=== PATIENT | female | born 1965 | race Caucasian/White ===

== ENCOUNTER 2021-04-18 09:17 | Inpatient (IN) ==
[2021-04-18] MEDS ORDERED: 0.9 % Sodium Chloride 1,000 ML IVC ONE (09:28)
[2021-04-18] MEDS ORDERED: Isovue-370 500 ML BOTTLE IVP ONE (09:30)
[2021-04-18 09:59] LABS: Basophils # 0.1 K/mcL (0.0-0.2); Basophils % 2.1 %; Eosinophils # 0.2 K/mcL (0.0-0.6); Eosinophils % 2.5 %; Hematocrit 48.4 % (35.3-44.9); Hemoglobin 16.4 g/dL (11.5-15.4); Immature Granulocytes % 0.4 % (0-4); Lymphocytes % 44.4 %; Mean Corpuscular HGB Conc 33.9 g/dL (31.6-35.5); Mean Corpuscular Hemoglobin 31.2 pg (28.0-33.3); Mean Platelet Volume 10.3 fL (9.4-12.4); Monocytes # 0.6 K/mcL (0.0-1.3); Monocytes % 8.3 %; Neutrophils # 2.9 K/mcL (1.6-8.9); Platelet Count 279 K/mcL (140-400); Red Blood Count 5.26 M/mcL (3.82-4.97); Segmented Neutrophils % 42.3 %; White Blood Count 6.8 K/mcL (4.3-11.1)
[2021-04-18 10:03] LABS: VBG Ionized Calcium 1.08 mmol/L (1.15-1.35)
[2021-04-18] MEDS ORDERED: *HR* LORazepam 2 MG/ML VIAL IVP ONE (10:03)
[2021-04-18 10:28] LABS: Acetaminophen 25 mcg/mL (10-20); Alanine Aminotransferase 52 Units/L (7-52); Albumin 4.7 g/dL (3.5-5.7); Albumin/Globulin Ratio 1.5 (1.1-2.2); Alkaline Phosphatase 137 Units/L (34-104); Aspartate Amino Transferase 107 Units/L (13-39); BUN/Creatinine Ratio 9 (6-26); Bilirubin,Direct 0.2 mg/dL (0.0-0.2); Bilirubin,Indirect 0.8 mg/dL (0.0-1.0); Blood Urea Nitrogen 6 mg/dL (6-20); Calcium 10.4 mg/dL (8.6-10.3); Carbon Dioxide 23 mEq/L (23-29); Chloride 94 mEq/L (98-107); Globulin 3.1 g/dL (2.4-3.5); Glucose 81 mg/dL (70-105); Lipase 32 Units/L (11-82); Magnesium 1.9 mg/dL (1.6-2.6); Osmolality,Calculated 275 (280-300); Phosphorous 3.6 mg/dL (2.7-4.5); Potassium 3.6 mEq/L (3.5-5.1); Salicylate < 2.5 mg/dL (15.0-30.0); Sodium 134 mEq/L (136-145); Total Protein 7.8 g/dL (6.4-8.9); Troponin I < 0.03 ng/mL (< 0.04); eGFR For African Americans > 60 (> 60); eGFR For Non-African Americans > 60 (> 60)
[2021-04-18 11:16] LABS: Ethanol 61 mg/dL (Less than 10)
[2021-04-18 12:16] LABS: Amphetamine Screen,Urine Positive ng/mL (Cutoff=1000); Barbiturate Screen,Urine Negative ng/mL (Cutoff=200); Benzodiazepines Screen,Urine Negative ng/mL (Cutoff=200); Cannabinoid Screen,Urine Negative ng/mL (Cutoff = 50); Cocaine Screen,Urine Negative ng/mL (Cutoff= 300); Opiate Screen,Urine Negative ng/mL (Cutoff=300); Phencyclidine Screen,Urine Negative ng/mL (Cutoff=25)
[2021-04-18 12:32] LABS: Bilirubin,Urine Negative (Negative); Blood,Urine Negative (Negative); Clarity,Urine Clear (Clear); Color,Urine Colorless (Yellow); Glucose,Urine (UA) Normal (Normal); Ketones,Urine 10 mg/dL (Negative); Leukocyte Esterase,Urine Trace (Negative); Mucus,Urine Few per lpf (None-Few); Nitrite,Urine Positive (Negative); PH,Urine 6.5 pH Units (5.0-8.0); Protein,Urine Trace mg/dL (Neg-Trace); RBC,Urine 0-3 per hpf (0-3); Specific Gravity,Urine > 1.030 (1.010-1.025); Squamous Epithelial Cell,Urine Few per hpf (None-Few); Urobilinogen,Urine Normal (Normal)
[2021-04-18] MEDS ORDERED: Ondansetron ODT 4 MG TAB.RAPDIS SL PRN (13:18)
[2021-04-18] MEDS ORDERED: Naloxone 0.4 MG/ML INJ IVP PRN (13:18)
[2021-04-18] MEDS ORDERED: MOM Conc 10 ML UD.LIQ PO PRN (13:18)
[2021-04-18] MEDS ORDERED: Mag Hydrox/Al Hydrox/Simeth 30 ML UDC PO PRN (13:18)
[2021-04-18] MEDS ORDERED: *HR* LORazepam 2 MG/ML VIAL IVP PRN (13:21)
[2021-04-18] MEDS: cefTRIAXone 1,000 MG in 0.9 % Sodium Chloride 10 ML IVP SCH (15:54)
[2021-04-18] MEDS: *HR* LORazepam 2 MG/ML VIAL IVP PRN ×2 (16:02→20:24)
[2021-04-18] MEDS: Nicotine 21 MG PATCH.TD24 TD SCH (17:14)
[2021-04-18] MEDS: Melatonin 3 MG TABLET PO PRN (20:22)
[2021-04-19] MEDS: *HR* LORazepam 2 MG/ML VIAL IVP PRN ×5 (00:56→20:00)
[2021-04-19] MEDS ORDERED: *HR* LORazepam 2 MG/ML VIAL IVP ONE ×2 (07:23→08:09)
[2021-04-19] MEDS: Folic Acid 1 MG TABLET PO SCH (07:39)
[2021-04-19] MEDS ORDERED: Thiamine (B-1) 100 MG TABLET PO SCH (09:00)
[2021-04-19] MEDS ORDERED: Vitamin B Complex/Vit C/Vit E 1 EACH TABLET PO SCH (09:00)
[2021-04-19] MEDS: cefTRIAXone 1,000 MG in 0.9 % Sodium Chloride 10 ML IVP SCH (15:28)
[2021-04-19] MEDS: Nicotine 21 MG PATCH.TD24 TD SCH (15:30)
[2021-04-20] MEDS: *HR* LORazepam 2 MG/ML VIAL IVP PRN ×4 (00:02→16:58)
[2021-04-20 04:47] LABS: Basophils # 0.1 K/mcL (0.0-0.2); Basophils % 1.7 %; Eosinophils # 0.1 K/mcL (0.0-0.6); Eosinophils % 2.1 %; Hematocrit 42.8 % (35.3-44.9); Immature Granulocytes % 0.2 % (0-4); Lymphocytes # 2.7 K/mcL (0.6-4.6); Lymphocytes % 40.8 %; Mean Corpuscular HGB Conc 34.1 g/dL (31.6-35.5); Mean Corpuscular Volume 93.9 fL (83.0-100.0); Mean Platelet Volume 10.6 fL (9.4-12.4); Monocytes # 0.6 K/mcL (0.0-1.3); Monocytes % 8.5 %; Neutrophils # 3.1 K/mcL (1.6-8.9); Platelet Count 218 K/mcL (140-400); Red Blood Count 4.56 M/mcL (3.82-4.97); Red Cell Distribution Width 12.8 % (11.5-14.5); Segmented Neutrophils % 46.7 %; White Blood Count 6.6 K/mcL (4.3-11.1)
[2021-04-20 04:54] LABS: Hemoglobin 14.6 g/dL (11.5-15.4)
[2021-04-20 05:06] LABS: BUN/Creatinine Ratio 10 (6-26); Blood Urea Nitrogen 5 mg/dL (6-20); Calcium 9.7 mg/dL (8.6-10.3); Carbon Dioxide 25 mEq/L (23-29); Chloride 99 mEq/L (98-107); Glucose 94 mg/dL (70-105); Osmolality,Calculated 279 (280-300); Potassium 3.4 mEq/L (3.5-5.1); Sodium 136 mEq/L (136-145); eGFR For African Americans > 60 (> 60); eGFR For Non-African Americans > 60 (> 60)
[2021-04-20] MEDS: Folic Acid 1 MG TABLET PO SCH (08:40)
[2021-04-20] MEDS: Thiamine (B-1) 500 MG in 0.9 % Sodium Chloride 50 ML IVPB SCH ×3 (09:27→20:07)
[2021-04-20] MEDS: cefTRIAXone 1,000 MG in 0.9 % Sodium Chloride 10 ML IVP SCH (15:07)
[2021-04-20] MEDS: Nicotine 21 MG PATCH.TD24 TD SCH (16:49)
[2021-04-20] MEDS: *HR* Heparin 5,000 UNIT/ML VIAL SQ SCH (16:50)
[2021-04-20] MEDS: Melatonin 3 MG TABLET PO PRN (20:03)
[2021-04-21] MEDS: *HR* LORazepam 2 MG/ML VIAL IVP PRN ×3 (00:27→07:52)
[2021-04-21 05:01] LABS: BUN/Creatinine Ratio 13 (6-26); Blood Urea Nitrogen 7 mg/dL (6-20); Calcium 9.1 mg/dL (8.6-10.3); Carbon Dioxide 28 mEq/L (23-29); Chloride 106 mEq/L (98-107); Glucose 95 mg/dL (70-105); Magnesium 1.9 mg/dL (1.6-2.6); Osmolality,Calculated 288 (280-300); Phosphorous 3.6 mg/dL (2.7-4.5); Potassium 4.2 mEq/L (3.5-5.1); Sodium 140 mEq/L (136-145); eGFR For African Americans > 60 (> 60); eGFR For Non-African Americans > 60 (> 60)
[2021-04-21] MEDS: *HR* Heparin 5,000 UNIT/ML VIAL SQ SCH (06:02)
[2021-04-21] MEDS: Folic Acid 1 MG TABLET PO SCH (08:25)
[2021-04-21] MEDS: Thiamine (B-1) 500 MG in 0.9 % Sodium Chloride 50 ML IVPB SCH (08:25)
[2021-04-21] MEDS ORDERED: risperiDONE 1 MG TABLET PO SCH (11:00)
[2021-04-21 11:37] VITALS: BP 121/82; PULSE 75; TEMP 98.4; O2SAT 98
[2021-04-21 13:55] LABS: Influenza A PCR Negative (Negative); Influenza B PCR Negative (Negative); Resp. Syncytial Virus PCR Negative (Negative)
[2021-04-21 13:56] LABS: SARS-CoV-2 by PCR (In House) Negative (Negative)
[2021-04-22] MEDS ORDERED: Thiamine (B-1) 200 MG in 0.9 % Sodium Chloride 50 ML IVPB SCH (09:00)
== END 2021-04-21 17:44 | DRG 753 ==
LOC: 3BNU 09:17 → EMEROOARM 09:17 → SUATTDRO 13:04 → 3BNU 14:28 → SUATTDRO 04-19 12:57
PROVIDERS: ADMIT Internal Medicine; ATTEND Internal Medicine

== ENCOUNTER 2021-10-06 05:58 | Inpatient (IN) ==
[2021-10-06] MEDS ORDERED: Papaverine 60 MG/2 ML VIAL IVP ONE (06:04)
[2021-10-06] MEDS ORDERED: DOBUTamine 1,000 MG/250 ML BAG ONE (06:15)
[2021-10-06] MEDS ORDERED: NiCARdipine 2.5 MG/10 ML Syringe IVPB ONE (06:15)
[2021-10-06] MEDS ORDERED: *HR* Midazolam HCl 5 MG/5 ML VIAL IVP ONE (06:18)
[2021-10-06] MEDS ORDERED: *HR* FentaNYL (PF) 1,000 MCG/20 ML VIAL ONE (06:19)
[2021-10-06] MEDS ORDERED: *HR* Propofol 200 MG/20 ML VIAL IVP ONE (06:19)
[2021-10-06] MEDS ORDERED: CeFAZolin Syr 2,000MG/20 ML 2,000 MG/20 ML SYRINGE IVPB ONE (06:21)
[2021-10-06] MEDS ORDERED: Tranexamic Acid 1,000 MG/10 ML VIAL ONE (06:21)
[2021-10-06] MEDS ORDERED: *HR* Magnesium Sulfate 1 GM/2 ML VIAL ONE (06:21)
[2021-10-06] MEDS ORDERED: Famotidine 20 MG/2 ML VIAL ONE (06:21)
[2021-10-06] MEDS ORDERED: Lidocaine 2% Syringe 100 MG/5 ML ONE (06:21)
[2021-10-06] MEDS ORDERED: *HR* Rocuronium Bromide 50 MG/5 ML VIAL ONE ×3 (06:22→10:39)
[2021-10-06] MEDS ORDERED: del Nido Cardioplegia Solution PF ONE ×2 (07:00)
[2021-10-06] MEDS ORDERED: Buckersberg's Blood Cardioplegia PF ONE (07:00)
[2021-10-06] MEDS ORDERED: Norepinephrine 4 MG in 0.9 % Sodium Chloride 250 ML IVC PRN (07:00)
[2021-10-06] MEDS ORDERED: Chlorhexidine Rinse 15 ML MOUTHWASH MM SCH (07:00)
[2021-10-06] MEDS ORDERED: Heparin 15,000 UNIT in 0.9 % Sodium Chloride 500 ML IR ONE (07:00)
[2021-10-06] MEDS: Ringers Solution, Lactated 1,000 ML IVC SCH (07:02)
[2021-10-06 07:34] LABS: ABG Base Excess -1 mEq/L (-2 to 3); ABG Chloride 105 mEq/L (98-107); ABG Glucose 81 mg/dL (60-95); ABG HCO3 26 mEq/L (21-27); ABG Ionized Calcium 1.27 mmol/L (1.15-1.35); ABG Oxygen Saturation 100 % (95-98); ABG PCO2 50 mmHg (35-45); ABG PH 7.33 pH Units (7.32-7.45); ABG PO2 310 mmHg (85-104); ABG TCO2 28 mEq/L (20-26)
[2021-10-06 09:04] LABS: ABG Base Excess -6 mEq/L (-2 to 3); ABG Chloride 108 mEq/L (98-107); ABG Glucose 75 mg/dL (60-95); ABG HCO3 21 mEq/L (21-27); ABG Oxygen Saturation 99 % (95-98); ABG PCO2 46 mmHg (35-45); ABG PH 7.27 pH Units (7.32-7.45); ABG PO2 172 mmHg (85-104); ABG TCO2 22 mEq/L (20-26)
[2021-10-06] MEDS ORDERED: Insulin Regular, Human 100 UNIT/ML IV PRN (09:06)
[2021-10-06] MEDS ORDERED: Ipratropium/Albuterol Neb 3 ML IH PRN (09:06)
[2021-10-06] MEDS ORDERED: *HR* Dextrose 50 % in Water (Syg) 50 ML SYRINGE IVP PRN (09:06)
[2021-10-06] MEDS ORDERED: Potassium Chloride 40 MEQ/200 ML BAG IVPB PRN (09:06)
[2021-10-06] MEDS ORDERED: Albuterol 2.5 MG/3 ML NEBULIZER IH PRN (09:06)
[2021-10-06] MEDS ORDERED: Acetaminophen 325 MG TABLET PO PRN (09:06)
[2021-10-06] MEDS ORDERED: *HR* Promethazine 25 MG/ML VIAL IM PRN (09:06)
[2021-10-06] MEDS ORDERED: Ondansetron 4 MG/2 ML VIAL IVP PRN (09:06)
[2021-10-06] MEDS ORDERED: Naloxone 0.4 MG/ML INJ IVP PRN (09:06)
[2021-10-06 10:00] LABS: ABG Base Excess -2 mEq/L (-2 to 3); ABG Chloride 106 mEq/L (98-107); ABG Glucose 92 mg/dL (60-95); ABG HCO3 22 mEq/L (21-27); ABG Ionized Calcium 0.97 mmol/L (1.15-1.35); ABG Oxygen Saturation 100 % (95-98); ABG PCO2 34 mmHg (35-45); ABG PH 7.42 pH Units (7.32-7.45); ABG PO2 566 mmHg (85-104); ABG TCO2 23 mEq/L (20-26)
[2021-10-06] MEDS ORDERED: Albumin Human 5% 75.0 GM/1,500 ML IV.SOLN ONE (10:20)
[2021-10-06 10:25] LABS: ABG Base Excess 1 mEq/L (-2 to 3); ABG Chloride 106 mEq/L (98-107); ABG Glucose 114 mg/dL (60-95); ABG HCO3 25 mEq/L (21-27); ABG Ionized Calcium 0.97 mmol/L (1.15-1.35); ABG Oxygen Saturation 100 % (95-98); ABG PCO2 36 mmHg (35-45); ABG PH 7.45 pH Units (7.32-7.45); ABG PO2 528 mmHg (85-104); ABG TCO2 26 mEq/L (20-26)
[2021-10-06] MEDS ORDERED: [UNRECOGNIZED DRUG - OTHER] IVPB ONE (10:30)
[2021-10-06] MEDS ORDERED: HUM PROTHROMBIN CPLX IVPB ONE (10:30)
[2021-10-06] MEDS ORDERED: WATER FOR INJ IVPB ONE (10:30)
[2021-10-06] MEDS ORDERED: niCARdipine 20 MG/200 ML MLS IVC ONE (10:35)
[2021-10-06 10:36] LABS: ABG Base Excess -2 mEq/L (-2 to 3); ABG Chloride 104 mEq/L (98-107); ABG Glucose 78 mg/dL (60-95); ABG HCO3 22 mEq/L (21-27); ABG Ionized Calcium 0.94 mmol/L (1.15-1.35); ABG PCO2 33 mmHg (35-45); ABG PH 7.43 pH Units (7.32-7.45); ABG PO2 > 630 mmHg (85-104); ABG TCO2 23 mEq/L (20-26)
[2021-10-06] MEDS ORDERED: *HR* FentaNYL (PF) 250 MCG/5 ML VIAL ONE (10:45)
[2021-10-06] MEDS ORDERED: Furosemide 40 MG/4 ML VIAL ONE (10:51)
[2021-10-06] MEDS ORDERED: Dexmedetomidine HCl 400 MCG/100 ML MLS IVC ONE (10:51)
[2021-10-06] MEDS ORDERED: Protamine Sulfate 250 MG/25 ML VIAL IVP ONE (11:11)
[2021-10-06] MEDS ORDERED: Calcium Gluconate 1,000 MG/10 ML VIAL ONE ×2 (11:11→11:40)
[2021-10-06 11:33] LABS: ABG Base Excess -5 mEq/L (-2 to 3); ABG Chloride 109 mEq/L (98-107); ABG Glucose 137 mg/dL (60-95); ABG HCO3 20 mEq/L (21-27); ABG Ionized Calcium 0.94 mmol/L (1.15-1.35); ABG Oxygen Saturation 100 % (95-98); ABG PCO2 37 mmHg (35-45); ABG PH 7.35 pH Units (7.32-7.45); ABG PO2 485 mmHg (85-104); ABG TCO2 22 mEq/L (20-26)
[2021-10-06 12:01] LABS: ABG Base Excess -3 mEq/L (-2 to 3); ABG Chloride 108 mEq/L (98-107); ABG Glucose 132 mg/dL (60-95); ABG HCO3 21 mEq/L (21-27); ABG Oxygen Saturation 100 % (95-98); ABG PCO2 35 mmHg (35-45); ABG PH 7.39 pH Units (7.32-7.45); ABG PO2 173 mmHg (85-104); ABG TCO2 22 mEq/L (20-26)
[2021-10-06] MEDS ORDERED: ceFAZolin 1,000 MG in 0.9 % Sodium Chloride 10 ML IVP ONE (12:06)
[2021-10-06 12:39] LABS: ABG Base Excess 2 mEq/L (-2 to 3); ABG HCO3 26 mEq/L (21-27); ABG Oxygen Saturation 100 % (95-98); ABG PCO2 41 mmHg (35-45); ABG PH 7.41 pH Units (7.32-7.45); ABG PO2 207 mmHg (85-104); ABG TCO2 28 mEq/L (20-26); Blood Gas VT 430 cc
[2021-10-06 12:59] LABS: Basophils # 0.1 K/mcL (0.0-0.2); Basophils % 0.6 %; Eosinophils % 0.5 %; Hematocrit 21.8 % (35.3-44.9); Immature Granulocytes % 0.8 % (0-4); Lymphocytes # 1.1 K/mcL (0.6-4.6); Lymphocytes % 12.3 %; Mean Corpuscular Hemoglobin 30.1 pg (28.0-33.3); Mean Corpuscular Volume 91.2 fL (83.0-100.0); Mean Platelet Volume 9.9 fL (9.4-12.4); Monocytes # 0.5 K/mcL (0.0-1.3); Monocytes % 5.6 %; Neutrophils # 6.9 K/mcL (1.6-8.9); Platelet Count 114 K/mcL (140-400); Red Blood Count 2.39 M/mcL (3.82-4.97); Red Cell Distribution Width 14.8 % (11.5-14.5); Segmented Neutrophils % 80.2 %; White Blood Count 8.6 K/mcL (4.3-11.1)
[2021-10-06 13:02] LABS: Hemoglobin 7.2 g/dL (11.5-15.4)
[2021-10-06 13:06] LABS: INR 1.2
[2021-10-06 13:08] LABS: Activated Partial Thrombo Time 38.3 Seconds (26.0-36.0)
[2021-10-06 13:11] LABS: Prothrombin Time 13.5 Seconds (9.4-12.1)
[2021-10-06 13:17] LABS: BUN/Creatinine Ratio 7 (6-26); Blood Urea Nitrogen 4 mg/dL (6-20); Calcium 10.4 mg/dL (8.6-10.3); Carbon Dioxide 28 mEq/L (23-29); Chloride 105 mEq/L (98-107); Glucose 136 mg/dL (70-105); Magnesium 2.7 mg/dL (1.6-2.6); Osmolality,Calculated 295 (280-300); Sodium 143 mEq/L (136-145)
[2021-10-06] MEDS: Dexmedetomidine HCl 400 MCG/100 ML MLS IVC SCH (13:20)
[2021-10-06] MEDS: niCARdipine 20 MG/200 ML MLS IVC SCH ×3 (13:21→21:41)
[2021-10-06] MEDS: DOBUTamine 1,000 MG/250 ML BAG IVC SCH (13:21)
[2021-10-06] MEDS: Norepinephrine 4 MG/254 ML IV.SOLN IVC SCH ×2 (13:22→15:33)
[2021-10-06] MEDS: *HR* FentaNYL (PF) 100 MCG/2 ML VIAL IVP PRN ×3 (15:15→20:49)
[2021-10-06] MEDS: Albumin Human 5% 12.5 GM/250 ML IV.SOLN IVPB PRN (15:35)
[2021-10-06] MEDS ORDERED: *HR* Phenylephrine 10 MG/ML VIAL IVC ONE (15:52)
[2021-10-06] MEDS ORDERED: Tranexamic Acid 1,000 MG/10 ML VIAL IR ONE (15:52)
[2021-10-06] MEDS ORDERED: Lidocaine 2% Syringe 100 MG/5 ML IVP ONE (15:52)
[2021-10-06] MEDS ORDERED: Mannitol 25% vial 12.5 GM/50 ML VIAL IVPB ONE (15:52)
[2021-10-06] MEDS ORDERED: *HR* Magnesium Sulfate 2 GM/50 ML PIGGYBACK IVPB ONE (15:52)
[2021-10-06] MEDS ORDERED: *HR* Heparin 10,000 UNIT/10 ML VIAL IR ONE (15:52)
[2021-10-06] MEDS ORDERED: Sodium Bicarbonate 50 MEQ/50 ML VIAL IVC ONE (15:52)
[2021-10-06] MEDS ORDERED: Albumin Human 25% 25 GM/100 ML IV.SOLN IVPB ONE (15:52)
[2021-10-06 15:59] LABS: ABG Base Excess 6 mEq/L (-2 to 3); ABG HCO3 31 mEq/L (21-27); ABG Oxygen Saturation 95 % (95-98); ABG PCO2 44 mmHg (35-45); ABG PH 7.45 pH Units (7.32-7.45); ABG PO2 71 mmHg (85-104); ABG TCO2 32 mEq/L (20-26); Blood Gas VT 430 cc
[2021-10-06] MEDS: Pantoprazole 40 MG VIAL IVP SCH (16:41)
[2021-10-06 16:52] LABS: ABG Base Excess 7 mEq/L (-2 to 3); ABG HCO3 31 mEq/L (21-27); ABG Oxygen Saturation 96 % (95-98); ABG PCO2 40 mmHg (35-45); ABG PO2 76 mmHg (85-104); ABG TCO2 32 mEq/L (20-26); Blood Gas Modality CPAP/PS; Blood Gas Pressure Support 5 cm H2O
[2021-10-06 17:46] LABS: ABG Base Excess 6 mEq/L (-2 to 3); ABG HCO3 31 mEq/L (21-27); ABG Oxygen Saturation 94 % (95-98); ABG PCO2 51 mmHg (35-45); ABG PO2 71 mmHg (85-104); ABG TCO2 33 mEq/L (20-26)
[2021-10-06] MEDS: *HR* OxyCODONE/APAP 5/325 TABLET PO PRN (19:24)
[2021-10-06] MEDS: Chlorhexidine Rinse 15 ML MOUTHWASH MM SCH (21:12)
[2021-10-06] MEDS ORDERED: *HR* LORazepam 1 MG TABLET PO PRN ×2 (23:54)
[2021-10-07] MEDS: Dexmedetomidine HCl 400 MCG/100 ML MLS IVC SCH ×3 (00:02→16:52)
[2021-10-07] MEDS: Vitamin B Complex/Vit C/Vit E 1 EACH TABLET PO SCH ×2 (00:11→09:13)
[2021-10-07] MEDS: Folic Acid 1 MG in 0.9 % Sodium Chloride 50 ML IVPB SCH ×2 (00:32→09:14)
[2021-10-07] MEDS: Thiamine (B-1) 200 MG in 0.9 % Sodium Chloride 50 ML IVPB SCH ×2 (01:38→09:14)
[2021-10-07] MEDS: *HR* OxyCODONE/APAP 5/325 TABLET PO PRN ×4 (02:19→21:37)
[2021-10-07 03:28] LABS: Basophils % 0.3 %; Immature Granulocytes % 0.3 % (0-4); Red Cell Distribution Width 14.9 % (11.5-14.5)
[2021-10-07 03:30] LABS: Hematocrit 21.8 % (35.3-44.9); Lymphocytes # 1.5 K/mcL (0.6-4.6); Lymphocytes % 19.2 %; Mean Corpuscular HGB Conc 32.1 g/dL (31.6-35.5); Mean Corpuscular Hemoglobin 29.5 pg (28.0-33.3); Mean Platelet Volume 10.9 fL (9.4-12.4); Monocytes # 0.7 K/mcL (0.0-1.3); Monocytes % 8.3 %; Neutrophils # 5.7 K/mcL (1.6-8.9); Red Blood Count 2.37 M/mcL (3.82-4.97); Segmented Neutrophils % 71.9 %; White Blood Count 7.9 K/mcL (4.3-11.1)
[2021-10-07 03:42] LABS: Platelet Count 67 K/mcL (140-400)
[2021-10-07 03:53] LABS: BUN/Creatinine Ratio 18 (6-26); Blood Urea Nitrogen 10 mg/dL (6-20); Calcium 8.6 mg/dL (8.6-10.3); Carbon Dioxide 31 mEq/L (23-29); Chloride 100 mEq/L (98-107); Glucose 139 mg/dL (70-105); Magnesium 1.9 mg/dL (1.6-2.6); Osmolality,Calculated 289 (280-300); Phosphorous 4.7 mg/dL (2.7-4.5); Sodium 139 mEq/L (136-145)
[2021-10-07] MEDS: Albumin Human 5% 12.5 GM/250 ML IV.SOLN IVPB PRN (04:42)
[2021-10-07] MEDS: niCARdipine 20 MG/200 ML MLS IVC SCH ×7 (06:33→23:03)
[2021-10-07] MEDS: Ringers Solution, Lactated 1,000 ML IVC SCH (06:33)
[2021-10-07] MEDS: *HR* FentaNYL (PF) 100 MCG/2 ML VIAL IVP PRN (06:34)
[2021-10-07] MEDS ORDERED: Furosemide 20 MG/2 ML VIAL IVP SCH (09:00)
[2021-10-07] MEDS: CeFAZolin 2,000 MG/120 ML BAG IVPB SCH ×2 (09:08→16:53)
[2021-10-07] MEDS: Chlorhexidine Rinse 15 ML MOUTHWASH MM SCH ×2 (09:13→19:37)
[2021-10-07] MEDS: Furosemide 40 MG/4 ML VIAL IVP SCH ×3 (09:13→16:57)
[2021-10-07] MEDS: Aspirin Enteric Coated 81 MG Tablet PO SCH (09:13)
[2021-10-07] MEDS: Pantoprazole 40 MG VIAL IVP SCH (09:13)
[2021-10-07] MEDS: DOBUTamine 1,000 MG/250 ML BAG IVC SCH (09:15)
[2021-10-07] MEDS: FLUoxetine 20 MG CAPSULE PO SCH (11:30)
[2021-10-07] MEDS: Norepinephrine 4 MG/254 ML IV.SOLN IVC SCH (19:34)
[2021-10-07] MEDS: traZODone 50 MG TABLET PO SCH (20:07)
[2021-10-07] MEDS ORDERED: Albumin Human 5% 12.5 GM/250 ML IV.SOLN IVPB PRN (20:47)
[2021-10-07 22:52] LABS: Hematocrit 22.3 % (35.3-44.9); Hemoglobin 7.1 g/dL (11.5-15.4)
[2021-10-08] MEDS: CeFAZolin 2,000 MG/120 ML BAG IVPB SCH ×3 (01:44→16:43)
[2021-10-08] MEDS: *HR* OxyCODONE/APAP 5/325 TABLET PO PRN ×4 (01:44→20:30)
[2021-10-08] MEDS: niCARdipine 20 MG/200 ML MLS IVC SCH ×4 (01:46→16:58)
[2021-10-08] MEDS: Ringers Solution, Lactated 1,000 ML IVC SCH (04:06)
[2021-10-08] MEDS ORDERED: 0.9 % Sodium Chloride 250 ML ONE (05:34)
[2021-10-08] MEDS: Furosemide 40 MG/4 ML VIAL IVP SCH ×5 (08:08→20:31)
[2021-10-08] MEDS: Aspirin Enteric Coated 81 MG Tablet PO SCH (08:11)
[2021-10-08] MEDS: Vitamin B Complex/Vit C/Vit E 1 EACH TABLET PO SCH (08:11)
[2021-10-08] MEDS: FLUoxetine 20 MG CAPSULE PO SCH (08:11)
[2021-10-08] MEDS: Chlorhexidine Rinse 15 ML MOUTHWASH MM SCH ×2 (08:11→20:31)
[2021-10-08] MEDS: Pantoprazole 40 MG VIAL IVP SCH (08:11)
[2021-10-08] MEDS: Thiamine (B-1) 200 MG in 0.9 % Sodium Chloride 50 ML IVPB SCH (08:12)
[2021-10-08 08:37] LABS: Eosinophils % 0.1 %; Hemoglobin 7.9 g/dL (11.5-15.4); Lymphocytes % 11.7 %; Monocytes % 8.5 %; Red Cell Distribution Width 14.6 % (11.5-14.5)
[2021-10-08 08:38] LABS: White Blood Count 16.1 K/mcL (4.3-11.1)
[2021-10-08 08:39] LABS: Basophils % 0.2 %; Hematocrit 24.2 % (35.3-44.9); Immature Granulocytes % 0.7 % (0-4); Immature Platelets 16.9 % (1.1-6.1); Lymphocytes # 1.9 K/mcL (0.6-4.6); Mean Corpuscular HGB Conc 32.6 g/dL (31.6-35.5); Monocytes # 1.4 K/mcL (0.0-1.3); Neutrophils # 12.7 K/mcL (1.6-8.9); Red Blood Count 2.63 M/mcL (3.82-4.97); Segmented Neutrophils % 78.8 %
[2021-10-08 08:47] LABS: Platelet Count 76 K/mcL (140-400)
[2021-10-08 08:55] LABS: Calcium 8.2 mg/dL (8.6-10.3); Phosphorous 2.7 mg/dL (2.7-4.5); Potassium 3.2 mEq/L (3.5-5.1)
[2021-10-08] MEDS: Folic Acid 1 MG in 0.9 % Sodium Chloride 50 ML IVPB SCH (09:40)
[2021-10-08] MEDS: DOBUTamine 1,000 MG/250 ML BAG IVC SCH (10:16)
[2021-10-08] MEDS: Norepinephrine 4 MG/254 ML IV.SOLN IVC SCH (12:26)
[2021-10-08] MEDS: Dexmedetomidine HCl 400 MCG/100 ML MLS IVC SCH ×2 (12:27→15:35)
[2021-10-08 16:21] LABS: Hematocrit 26.4 % (35.3-44.9); Hemoglobin 8.6 g/dL (11.5-15.4)
[2021-10-08] MEDS: *HR* LORazepam 1 MG TABLET PO PRN (18:41)
[2021-10-08] MEDS: traZODone 50 MG TABLET PO SCH (20:31)
[2021-10-09] MEDS: Dexmedetomidine HCl 400 MCG/100 ML MLS IVC SCH ×2 (00:30→06:50)
[2021-10-09] MEDS: CeFAZolin 2,000 MG/120 ML BAG IVPB SCH ×3 (04:30→17:19)
[2021-10-09 05:03] LABS: Basophils % 0.2 %; Eosinophils % 0.1 %; Hemoglobin 7.9 g/dL (11.5-15.4); Red Blood Count 2.63 M/mcL (3.82-4.97)
[2021-10-09 05:05] LABS: Hematocrit 24.1 % (35.3-44.9); Immature Granulocytes % 1.3 % (0-4); Immature Platelets 17.5 % (1.1-6.1); Lymphocytes # 1.8 K/mcL (0.6-4.6); Lymphocytes % 14.1 %; Mean Corpuscular HGB Conc 32.8 g/dL (31.6-35.5); Mean Corpuscular Volume 91.6 fL (83.0-100.0); Mean Platelet Volume 12.1 fL (9.4-12.4); Monocytes # 1.1 K/mcL (0.0-1.3); Monocytes % 8.3 %; Neutrophils # 9.7 K/mcL (1.6-8.9); Red Cell Distribution Width 14.6 % (11.5-14.5); White Blood Count 12.7 K/mcL (4.3-11.1)
[2021-10-09 05:05] LABS: VBG Ionized Calcium 1.04 mmol/L (1.15-1.35)
[2021-10-09 05:08] LABS: Platelet Count 62 K/mcL (140-400)
[2021-10-09 05:20] LABS: BUN/Creatinine Ratio 21 (6-26); Blood Urea Nitrogen 16 mg/dL (6-20); Carbon Dioxide 26 mEq/L (23-29); Chloride 98 mEq/L (98-107); Glucose 131 mg/dL (70-105); Magnesium 1.8 mg/dL (1.6-2.6); Osmolality,Calculated 277 (280-300); Phosphorous 2.7 mg/dL (2.7-4.5); Potassium 3.2 mEq/L (3.5-5.1); Sodium 132 mEq/L (136-145)
[2021-10-09] MEDS: *HR* OxyCODONE/APAP 5/325 TABLET PO PRN ×3 (06:26→21:34)
[2021-10-09] MEDS: Aspirin Enteric Coated 81 MG Tablet PO SCH (09:13)
[2021-10-09] MEDS: FLUoxetine 20 MG CAPSULE PO SCH (09:13)
[2021-10-09] MEDS: Vitamin B Complex/Vit C/Vit E 1 EACH TABLET PO SCH (09:13)
[2021-10-09] MEDS: Chlorhexidine Rinse 15 ML MOUTHWASH MM SCH ×2 (09:13→21:33)
[2021-10-09] MEDS: Pantoprazole 40 MG VIAL IVP SCH (09:13)
[2021-10-09] MEDS: Furosemide 40 MG/4 ML VIAL IVP SCH ×2 (09:14→17:19)
[2021-10-09] MEDS: niCARdipine 20 MG/200 ML MLS IVC SCH ×5 (09:14→20:14)
[2021-10-09] MEDS: DOBUTamine 1,000 MG/250 ML BAG IVC SCH (09:15)
[2021-10-09] MEDS: Ringers Solution, Lactated 1,000 ML IVC SCH (09:15)
[2021-10-09] MEDS ORDERED: Calcium Gluconate 1gm/50mL 1 GM/50 ML BAG IVPB ONE (15:32)
[2021-10-09] MEDS: Ipratropium/Albuterol Neb 3 ML IH SCH ×2 (16:08→21:34)
[2021-10-09] MEDS ORDERED: NON-FORMULARY MEDICATION 1 EACH EACH (Albuterol Sulfate [Proair Respiclick] 90 MCG Aer.Pow IH PRN (16:33)
[2021-10-09] MEDS: Budesonide/Formoterol 160/4.5 1 PUFF INH IH SCH (21:34)
[2021-10-09] MEDS: traZODone 50 MG TABLET PO SCH (21:34)
[2021-10-09] MEDS: Albuterol 2.5 MG/3 ML NEBULIZER IH SCH (21:34)
[2021-10-10] MEDS: Ipratropium/Albuterol Neb 3 ML IH SCH ×6 (03:41→23:09)
[2021-10-10] MEDS: Albuterol 2.5 MG/3 ML NEBULIZER IH SCH ×2 (03:41→10:26)
[2021-10-10 04:22] LABS: BUN/Creatinine Ratio 22 (6-26); Blood Urea Nitrogen 15 mg/dL (6-20); Calcium 7.9 mg/dL (8.6-10.3); Carbon Dioxide 29 mEq/L (23-29); Chloride 101 mEq/L (98-107); Glucose 112 mg/dL (70-105); Osmolality,Calculated 284 (280-300); Potassium 3.7 mEq/L (3.5-5.1); Sodium 136 mEq/L (136-145)
[2021-10-10] MEDS: Ringers Solution, Lactated 1,000 ML IVC SCH ×2 (06:41→22:33)
[2021-10-10] MEDS: CeFAZolin 2,000 MG/120 ML BAG IVPB SCH ×2 (06:42→08:09)
[2021-10-10] MEDS: niCARdipine 20 MG/200 ML MLS IVC SCH ×7 (08:03→22:32)
[2021-10-10] MEDS: Furosemide 40 MG/4 ML VIAL IVP SCH ×2 (08:04→17:01)
[2021-10-10] MEDS: Norepinephrine 4 MG/254 ML IV.SOLN IVC SCH ×2 (08:04→22:32)
[2021-10-10] MEDS: Aspirin Enteric Coated 81 MG Tablet PO SCH (08:05)
[2021-10-10] MEDS: Chlorhexidine Rinse 15 ML MOUTHWASH MM SCH ×2 (08:05→20:21)
[2021-10-10] MEDS: Pantoprazole 40 MG VIAL IVP SCH (08:05)
[2021-10-10] MEDS: Vitamin B Complex/Vit C/Vit E 1 EACH TABLET PO SCH (08:05)
[2021-10-10] MEDS: FLUoxetine 20 MG CAPSULE PO SCH (08:06)
[2021-10-10] MEDS: *HR* OxyCODONE/APAP 5/325 TABLET PO PRN ×3 (08:29→20:32)
[2021-10-10] MEDS: DOBUTamine 1,000 MG/250 ML BAG IVC SCH (09:39)
[2021-10-10 10:12] LABS: Basophils % 0.2 %; Eosinophils # 0.1 K/mcL (0.0-0.6); Eosinophils % 1.5 %; Hematocrit 24.8 % (35.3-44.9); Immature Granulocytes % 0.6 % (0-4); Lymphocytes # 0.7 K/mcL (0.6-4.6); Mean Corpuscular HGB Conc 32.3 g/dL (31.6-35.5); Mean Corpuscular Hemoglobin 30.7 pg (28.0-33.3); Mean Platelet Volume 11.9 fL (9.4-12.4); Monocytes # 0.8 K/mcL (0.0-1.3); Monocytes % 8.6 %; Neutrophils # 7.7 K/mcL (1.6-8.9); Platelet Count 103 K/mcL (140-400); Red Blood Count 2.61 M/mcL (3.82-4.97); Red Cell Distribution Width 15.1 % (11.5-14.5); Segmented Neutrophils % 82.1 %; White Blood Count 9.4 K/mcL (4.3-11.1)
[2021-10-10] MEDS: Budesonide/Formoterol 160/4.5 1 PUFF INH IH SCH ×2 (10:56→19:42)
[2021-10-10] MEDS: *HR* LORazepam 1 MG TABLET PO PRN ×2 (13:17→17:18)
[2021-10-10 14:23] LABS: INR 1.4; Prothrombin Time 15.9 Seconds (9.4-12.1)
[2021-10-10 14:25] LABS: Activated Partial Thrombo Time 24.6 Seconds (26.0-36.0)
[2021-10-10 14:50] LABS: Albumin 4.1 g/dL (3.5-5.7); Albumin/Globulin Ratio 1.4 (1.1-2.2); Bilirubin,Direct 0.1 mg/dL (0.0-0.2); Bilirubin,Indirect 0.6 mg/dL (0.0-1.0); Bilirubin,Total 0.7 mg/dL (0.3-1.0); Globulin 2.9 g/dL (2.4-3.5)
[2021-10-10] MEDS: traZODone 50 MG TABLET PO SCH (20:25)
[2021-10-11] MEDS: Ipratropium/Albuterol Neb 3 ML IH SCH ×6 (03:56→23:58)
[2021-10-11] MEDS: niCARdipine 20 MG/200 ML MLS IVC SCH (05:05)
[2021-10-11] MEDS: *HR* LORazepam 1 MG TABLET PO PRN ×2 (05:48→09:46)
[2021-10-11 06:21] LABS: Basophils % 0.3 %; Eosinophils # 0.1 K/mcL (0.0-0.6); Eosinophils % 1.8 %; Hematocrit 24.5 % (35.3-44.9); Hemoglobin 7.8 g/dL (11.5-15.4); Immature Granulocytes % 0.7 % (0-4); Lymphocytes # 1.4 K/mcL (0.6-4.6); Lymphocytes % 18.7 %; Mean Corpuscular HGB Conc 31.8 g/dL (31.6-35.5); Mean Corpuscular Hemoglobin 30.2 pg (28.0-33.3); Mean Platelet Volume 11.2 fL (9.4-12.4); Monocytes % 13.2 %; Neutrophils # 4.8 K/mcL (1.6-8.9); Platelet Count 117 K/mcL (140-400); Red Blood Count 2.58 M/mcL (3.82-4.97); Red Cell Distribution Width 15.2 % (11.5-14.5); Segmented Neutrophils % 65.3 %; White Blood Count 7.3 K/mcL (4.3-11.1)
[2021-10-11 06:37] LABS: BUN/Creatinine Ratio 21 (6-26); Blood Urea Nitrogen 11 mg/dL (6-20); Calcium 8.1 mg/dL (8.6-10.3); Carbon Dioxide 29 mEq/L (23-29); Chloride 99 mEq/L (98-107); Glucose 109 mg/dL (70-105); Osmolality,Calculated 278 (280-300); Phosphorous 2.3 mg/dL (2.7-4.5); Potassium 3.6 mEq/L (3.5-5.1); Sodium 134 mEq/L (136-145)
[2021-10-11] MEDS: Budesonide/Formoterol 160/4.5 1 PUFF INH IH SCH ×2 (08:06→19:57)
[2021-10-11] MEDS: Furosemide 40 MG/4 ML VIAL IVP SCH ×2 (08:47→17:06)
[2021-10-11] MEDS: Vitamin B Complex/Vit C/Vit E 1 EACH TABLET PO SCH (08:47)
[2021-10-11] MEDS: FLUoxetine 20 MG CAPSULE PO SCH (08:47)
[2021-10-11] MEDS: Chlorhexidine Rinse 15 ML MOUTHWASH MM SCH ×2 (08:47→08:51)
[2021-10-11] MEDS: Aspirin Enteric Coated 81 MG Tablet PO SCH (08:47)
[2021-10-11] MEDS: Pantoprazole 40 MG VIAL IVP SCH (08:51)
[2021-10-11] MEDS ORDERED: Tiotropium 10 INH DOSE IH SCH (09:00)
[2021-10-11] MEDS: *HR* OxyCODONE/APAP 5/325 TABLET PO PRN ×2 (14:48→23:49)
[2021-10-11] MEDS: Dexmedetomidine HCl 400 MCG/100 ML MLS IVC SCH (19:18)
[2021-10-11] MEDS: traZODone 50 MG TABLET PO SCH (20:19)
[2021-10-11] MEDS: Sennosides/Docusate Sodium TABLET PO SCH (21:09)
[2021-10-12] MEDS: Ipratropium/Albuterol Neb 3 ML IH SCH ×6 (03:47→23:07)
[2021-10-12 05:01] LABS: Basophils % 0.3 %; Eosinophils # 0.2 K/mcL (0.0-0.6); Eosinophils % 2.2 %; Hemoglobin 7.5 g/dL (11.5-15.4); Immature Granulocytes % 0.9 % (0-4); Lymphocytes # 1.7 K/mcL (0.6-4.6); Lymphocytes % 24.7 %; Mean Corpuscular HGB Conc 32.6 g/dL (31.6-35.5); Mean Platelet Volume 11.2 fL (9.4-12.4); Monocytes # 0.9 K/mcL (0.0-1.3); Monocytes % 12.9 %; Platelet Count 142 K/mcL (140-400); Red Cell Distribution Width 15.5 % (11.5-14.5); White Blood Count 6.8 K/mcL (4.3-11.1)
[2021-10-12 05:08] LABS: BUN/Creatinine Ratio 24 (6-26); Blood Urea Nitrogen 12 mg/dL (6-20); Calcium 8.3 mg/dL (8.6-10.3); Carbon Dioxide 34 mEq/L (23-29); Chloride 98 mEq/L (98-107); Glucose 114 mg/dL (70-105); Magnesium 1.9 mg/dL (1.6-2.6); Osmolality,Calculated 289 (280-300); Potassium 2.9 mEq/L (3.5-5.1); Sodium 139 mEq/L (136-145)
[2021-10-12] MEDS: *HR* OxyCODONE/APAP 5/325 TABLET PO PRN ×3 (05:51→19:58)
[2021-10-12] MEDS: Furosemide 40 MG/4 ML VIAL IVP SCH ×2 (07:41→17:12)
[2021-10-12] MEDS: Pantoprazole 40 MG VIAL IVP SCH (07:41)
[2021-10-12] MEDS: Chlorhexidine Rinse 15 ML MOUTHWASH MM SCH ×2 (07:42→19:54)
[2021-10-12] MEDS: Aspirin Enteric Coated 81 MG Tablet PO SCH (07:42)
[2021-10-12] MEDS: FLUoxetine 20 MG CAPSULE PO SCH (07:43)
[2021-10-12] MEDS: Sennosides/Docusate Sodium TABLET PO SCH ×2 (07:43→19:58)
[2021-10-12] MEDS: Vitamin B Complex/Vit C/Vit E 1 EACH TABLET PO SCH (07:43)
[2021-10-12] MEDS: Budesonide/Formoterol 160/4.5 1 PUFF INH IH SCH ×2 (07:45→19:57)
[2021-10-12] MEDS ORDERED: polyethylene glycoL 3350 17 GM POWD.PACK PO SCH (09:00)
[2021-10-12] MEDS: niCARdipine 20 MG/200 ML MLS IVC SCH (10:13)
[2021-10-12] MEDS: DOBUTamine 1,000 MG/250 ML BAG IVC SCH (10:13)
[2021-10-12] MEDS: Dexmedetomidine HCl 400 MCG/100 ML MLS IVC SCH (12:22)
[2021-10-12 14:24] LABS: VBG Ionized Calcium 1.13 mmol/L (1.15-1.35)
[2021-10-12] MEDS ORDERED: Ondansetron 4 MG/2 ML VIAL IVP PRN (14:31)
[2021-10-12] MEDS ORDERED: *HR* Promethazine 25 MG/ML VIAL IM PRN (14:31)
[2021-10-12] MEDS ORDERED: *HR* Dextrose 50 % in Water (Syg) 50 ML SYRINGE IVP PRN (14:31)
[2021-10-12] MEDS ORDERED: Albuterol 2.5 MG/3 ML NEBULIZER IH PRN (14:31)
[2021-10-12] MEDS ORDERED: Naloxone 0.4 MG/ML INJ IVP PRN (14:31)
[2021-10-12] MEDS ORDERED: Acetaminophen 325 MG TABLET PO PRN (14:31)
[2021-10-12] MEDS ORDERED: Potassium Chloride 40 MEQ/200 ML BAG IVPB PRN (14:31)
[2021-10-12 14:35] LABS: BUN/Creatinine Ratio 23 (6-26); Blood Urea Nitrogen 12 mg/dL (6-20); Calcium 8.3 mg/dL (8.6-10.3); Carbon Dioxide 31 mEq/L (23-29); Chloride 102 mEq/L (98-107); Glucose 167 mg/dL (70-105); Magnesium 2.3 mg/dL (1.6-2.6); Osmolality,Calculated 292 (280-300); Phosphorous 2.1 mg/dL (2.7-4.5); Potassium 3.6 mEq/L (3.5-5.1); Sodium 139 mEq/L (136-145)
[2021-10-12] MEDS ORDERED: Ketorolac 30 MG/ML VIAL IVP PRN (17:14)
[2021-10-12] MEDS: traZODone 50 MG TABLET PO SCH (19:58)
[2021-10-12] MEDS ORDERED: Furosemide 40 MG/4 ML VIAL IVP SCH (21:00)
[2021-10-13] MEDS: *HR* OxyCODONE/APAP 5/325 TABLET PO PRN ×4 (03:33→20:22)
[2021-10-13] MEDS: Ipratropium/Albuterol Neb 3 ML IH SCH ×6 (04:10→23:09)
[2021-10-13 07:19] LABS: BUN/Creatinine Ratio 27 (6-26); Blood Urea Nitrogen 17 mg/dL (6-20); Calcium 8.7 mg/dL (8.6-10.3); Carbon Dioxide 32 mEq/L (23-29); Chloride 100 mEq/L (98-107); Glucose 100 mg/dL (70-105); Magnesium 2.4 mg/dL (1.6-2.6); Osmolality,Calculated 288 (280-300); Potassium 4.7 mEq/L (3.5-5.1); Sodium 138 mEq/L (136-145)
[2021-10-13] MEDS: Budesonide/Formoterol 160/4.5 1 PUFF INH IH SCH ×2 (07:53→19:56)
[2021-10-13 07:55] LABS: Basophils # 0.1 K/mcL (0.0-0.2); Basophils % 0.6 %; Eosinophils # 0.3 K/mcL (0.0-0.6); Eosinophils % 3.9 %; Hematocrit 26.5 % (35.3-44.9); Hemoglobin 8.4 g/dL (11.5-15.4); Immature Granulocytes % 1.2 % (0-4); Lymphocytes # 2.1 K/mcL (0.6-4.6); Lymphocytes % 25.5 %; Mean Corpuscular HGB Conc 31.7 g/dL (31.6-35.5); Mean Corpuscular Volume 94.6 fL (83.0-100.0); Mean Platelet Volume 10.9 fL (9.4-12.4); Monocytes % 12.2 %; Neutrophils # 4.6 K/mcL (1.6-8.9); Platelet Count 193 K/mcL (140-400); Red Cell Distribution Width 15.9 % (11.5-14.5); Segmented Neutrophils % 56.6 %
[2021-10-13] MEDS: Vitamin B Complex/Vit C/Vit E 1 EACH TABLET PO SCH (08:38)
[2021-10-13] MEDS: Aspirin Enteric Coated 81 MG Tablet PO SCH (08:38)
[2021-10-13] MEDS: Chlorhexidine Rinse 15 ML MOUTHWASH MM SCH ×2 (08:39→20:18)
[2021-10-13] MEDS: polyethylene glycoL 3350 17 GM POWD.PACK PO SCH (08:39)
[2021-10-13] MEDS: Sennosides/Docusate Sodium TABLET PO SCH ×2 (08:39→20:18)
[2021-10-13] MEDS: FLUoxetine 20 MG CAPSULE PO SCH (08:39)
[2021-10-13] MEDS: Furosemide 40 MG/4 ML VIAL IVP SCH ×2 (08:40→09:06)
[2021-10-13] MEDS ORDERED: Aspirin Enteric Coated 81 MG Tablet PO SCH (09:00)
[2021-10-13] MEDS: Albumin Human 5% 12.5 GM/250 ML IV.SOLN IVPB PRN (11:26)
[2021-10-13] MEDS: hydrOXYzine pamoate 25 MG CAPSULE PO PRN (14:28)
[2021-10-13] MEDS: traZODone 50 MG TABLET PO SCH (20:19)
[2021-10-14] MEDS: Ipratropium/Albuterol Neb 3 ML IH SCH ×5 (04:11→20:04)
[2021-10-14] MEDS: hydrOXYzine pamoate 25 MG CAPSULE PO PRN ×2 (04:52→13:28)
[2021-10-14] MEDS: Budesonide/Formoterol 160/4.5 1 PUFF INH IH SCH ×2 (07:41→20:04)
[2021-10-14 08:11] LABS: Basophils % 0.2 %; Eosinophils # 0.1 K/mcL (0.0-0.6); Eosinophils % 1.1 %; Hematocrit 23.6 % (35.3-44.9); Hemoglobin 7.4 g/dL (11.5-15.4); Lymphocytes # 1.7 K/mcL (0.6-4.6); Lymphocytes % 14.4 %; Mean Corpuscular HGB Conc 31.4 g/dL (31.6-35.5); Mean Corpuscular Hemoglobin 29.4 pg (28.0-33.3); Mean Corpuscular Volume 93.7 fL (83.0-100.0); Monocytes # 1.2 K/mcL (0.0-1.3); Monocytes % 10.3 %; Neutrophils # 8.4 K/mcL (1.6-8.9); Platelet Count 220 K/mcL (140-400); Red Blood Count 2.52 M/mcL (3.82-4.97); Red Cell Distribution Width 15.8 % (11.5-14.5); White Blood Count 11.5 K/mcL (4.3-11.1)
[2021-10-14 08:27] LABS: BUN/Creatinine Ratio 24 (6-26); Blood Urea Nitrogen 12 mg/dL (6-20); Calcium 8.6 mg/dL (8.6-10.3); Carbon Dioxide 30 mEq/L (23-29); Chloride 99 mEq/L (98-107); Glucose 109 mg/dL (70-105); Osmolality,Calculated 282 (280-300); Potassium 4.3 mEq/L (3.5-5.1); Sodium 136 mEq/L (136-145)
[2021-10-14] MEDS: FLUoxetine 20 MG CAPSULE PO SCH (08:56)
[2021-10-14] MEDS: Chlorhexidine Rinse 15 ML MOUTHWASH MM SCH ×2 (08:56→21:27)
[2021-10-14] MEDS: polyethylene glycoL 3350 17 GM POWD.PACK PO SCH (08:56)
[2021-10-14] MEDS: Sennosides/Docusate Sodium TABLET PO SCH ×2 (08:56→21:26)
[2021-10-14] MEDS: *HR* OxyCODONE/APAP 5/325 TABLET PO PRN ×3 (08:57→17:57)
[2021-10-14] MEDS: Vitamin B Complex/Vit C/Vit E 1 EACH TABLET PO SCH (08:57)
[2021-10-14] MEDS: Aspirin Enteric Coated 81 MG Tablet PO SCH (08:57)
[2021-10-14] MEDS: Bumetanide 1 MG/4 ML VIAL IVP SCH ×2 (09:51→17:57)
[2021-10-14 14:31] LABS: Hematocrit 23.7 % (35.3-44.9); Hemoglobin 7.5 g/dL (11.5-15.4)
[2021-10-14] MEDS: traZODone 50 MG TABLET PO SCH (21:26)
[2021-10-15] MEDS: Ipratropium/Albuterol Neb 3 ML IH SCH ×7 (00:13→23:28)
[2021-10-15] MEDS: *HR* OxyCODONE/APAP 5/325 TABLET PO PRN ×5 (00:27→19:39)
[2021-10-15 02:18] LABS: Basophils # 0.1 K/mcL (0.0-0.2); Basophils % 0.4 %; Eosinophils # 0.2 K/mcL (0.0-0.6); Hematocrit 23.2 % (35.3-44.9); Hemoglobin 7.3 g/dL (11.5-15.4); Immature Granulocytes % 1.3 % (0-4); Lymphocytes # 1.7 K/mcL (0.6-4.6); Lymphocytes % 14.7 %; Mean Corpuscular HGB Conc 31.5 g/dL (31.6-35.5); Mean Corpuscular Hemoglobin 29.3 pg (28.0-33.3); Mean Corpuscular Volume 93.2 fL (83.0-100.0); Mean Platelet Volume 10.8 fL (9.4-12.4); Monocytes # 1.1 K/mcL (0.0-1.3); Monocytes % 9.3 %; Neutrophils # 8.5 K/mcL (1.6-8.9); Platelet Count 217 K/mcL (140-400); Red Blood Count 2.49 M/mcL (3.82-4.97); Red Cell Distribution Width 15.8 % (11.5-14.5); Segmented Neutrophils % 72.3 %; White Blood Count 11.8 K/mcL (4.3-11.1)
[2021-10-15 02:37] LABS: BUN/Creatinine Ratio 22 (6-26); Blood Urea Nitrogen 12 mg/dL (6-20); Calcium 8.3 mg/dL (8.6-10.3); Carbon Dioxide 33 mEq/L (23-29); Chloride 98 mEq/L (98-107); Glucose 121 mg/dL (70-105); Osmolality,Calculated 285 (280-300); Potassium 3.5 mEq/L (3.5-5.1); Sodium 137 mEq/L (136-145)
[2021-10-15] MEDS: hydrOXYzine pamoate 25 MG CAPSULE PO PRN ×3 (03:18→14:56)
[2021-10-15] MEDS: FLUoxetine 20 MG CAPSULE PO SCH (08:14)
[2021-10-15] MEDS: Bumetanide 1 MG/4 ML VIAL IVP SCH ×2 (08:14→18:35)
[2021-10-15] MEDS: Chlorhexidine Rinse 15 ML MOUTHWASH MM SCH (08:14)
[2021-10-15] MEDS: Vitamin B Complex/Vit C/Vit E 1 EACH TABLET PO SCH (08:15)
[2021-10-15] MEDS: polyethylene glycoL 3350 17 GM POWD.PACK PO SCH (08:15)
[2021-10-15] MEDS: Aspirin Enteric Coated 81 MG Tablet PO SCH (08:15)
[2021-10-15] MEDS: Sennosides/Docusate Sodium TABLET PO SCH ×2 (08:15→20:50)
[2021-10-15] MEDS: Budesonide/Formoterol 160/4.5 1 PUFF INH IH SCH ×2 (08:28→20:03)
[2021-10-15 08:55] LABS: Hematocrit 24.9 % (35.3-44.9); Hemoglobin 7.8 g/dL (11.5-15.4)
[2021-10-15] MEDS: traZODone 50 MG TABLET PO SCH (20:50)
[2021-10-16] MEDS: *HR* OxyCODONE/APAP 5/325 TABLET PO PRN ×4 (01:12→21:04)
[2021-10-16] MEDS: hydrOXYzine pamoate 25 MG CAPSULE PO PRN ×3 (01:13→17:47)
[2021-10-16] MEDS ORDERED: Bumetanide 1 MG/4 ML VIAL IVP ONE (01:40)
[2021-10-16] MEDS ORDERED: Albumin 25% 25gram/100mL 25 GM/100 ML IV.SOLN IVPB ONE (01:47)
[2021-10-16] MEDS: Chlorhexidine Rinse 15 ML MOUTHWASH MM SCH ×3 (02:47→21:06)
[2021-10-16] MEDS: Ipratropium/Albuterol Neb 3 ML IH SCH ×6 (04:06→23:13)
[2021-10-16] MEDS: Budesonide/Formoterol 160/4.5 1 PUFF INH IH SCH ×2 (07:17→19:51)
[2021-10-16] MEDS: Aspirin Enteric Coated 81 MG Tablet PO SCH (08:47)
[2021-10-16] MEDS: Vitamin B Complex/Vit C/Vit E 1 EACH TABLET PO SCH (08:47)
[2021-10-16] MEDS: FLUoxetine 20 MG CAPSULE PO SCH (08:48)
[2021-10-16] MEDS: Bumetanide 1 MG/4 ML VIAL IVP SCH ×2 (08:52→17:50)
[2021-10-16] MEDS: Sennosides/Docusate Sodium TABLET PO SCH ×2 (08:55→21:06)
[2021-10-16] MEDS: polyethylene glycoL 3350 17 GM POWD.PACK PO SCH (08:55)
[2021-10-16 09:22] LABS: Basophils # 0.1 K/mcL (0.0-0.2); Basophils % 0.4 %; Eosinophils # 0.2 K/mcL (0.0-0.6); Eosinophils % 1.7 %; Hematocrit 24.8 % (35.3-44.9); Hemoglobin 7.8 g/dL (11.5-15.4); Immature Granulocytes % 0.9 % (0-4); Mean Corpuscular HGB Conc 31.5 g/dL (31.6-35.5); Mean Corpuscular Hemoglobin 29.7 pg (28.0-33.3); Mean Corpuscular Volume 94.3 fL (83.0-100.0); Mean Platelet Volume 11.5 fL (9.4-12.4); Monocytes % 7.7 %; Neutrophils # 9.3 K/mcL (1.6-8.9); Platelet Count 245 K/mcL (140-400); Red Blood Count 2.63 M/mcL (3.82-4.97); Red Cell Distribution Width 15.9 % (11.5-14.5); Segmented Neutrophils % 73.3 %; White Blood Count 12.7 K/mcL (4.3-11.1)
[2021-10-16 10:11] LABS: BUN/Creatinine Ratio 22 (6-26); Blood Urea Nitrogen 15 mg/dL (6-20); Calcium 8.9 mg/dL (8.6-10.3); Carbon Dioxide 33 mEq/L (23-29); Chloride 95 mEq/L (98-107); Glucose 121 mg/dL (70-105); Osmolality,Calculated 282 (280-300); Potassium 3.5 mEq/L (3.5-5.1); Sodium 135 mEq/L (136-145)
[2021-10-16] MEDS: traZODone 50 MG TABLET PO SCH (21:04)
[2021-10-16] MEDS ORDERED: diazePAM 5 MG TABLET PO ONE (21:35)
[2021-10-17 03:00] LABS: ABG Base Excess 3 mEq/L (-2 to 3); ABG HCO3 30 mEq/L (21-27); ABG Oxygen Saturation 91 % (95-98); ABG PCO2 53 mmHg (35-45); ABG PH 7.35 pH Units (7.32-7.45); ABG PO2 64 mmHg (85-104); ABG TCO2 31 mEq/L (20-26)
[2021-10-17] MEDS: hydrOXYzine pamoate 25 MG CAPSULE PO PRN (03:03)
[2021-10-17] MEDS: Ipratropium/Albuterol Neb 3 ML IH SCH ×7 (03:51→23:00)
[2021-10-17] MEDS: Albumin Human 5% 12.5 GM/250 ML IV.SOLN IVPB PRN (06:03)
[2021-10-17] MEDS: Bumetanide 1 MG/4 ML VIAL IVP SCH (06:20)
[2021-10-17] MEDS: FLUoxetine 20 MG CAPSULE PO SCH (08:00)
[2021-10-17] MEDS: Aspirin Enteric Coated 81 MG Tablet PO SCH (08:00)
[2021-10-17] MEDS: Vitamin B Complex/Vit C/Vit E 1 EACH TABLET PO SCH (08:00)
[2021-10-17] MEDS: *HR* OxyCODONE/APAP 5/325 TABLET PO PRN (08:00)
[2021-10-17] MEDS: polyethylene glycoL 3350 17 GM POWD.PACK PO SCH (08:01)
[2021-10-17] MEDS: Chlorhexidine Rinse 15 ML MOUTHWASH MM SCH ×2 (08:01→19:45)
[2021-10-17] MEDS: Sennosides/Docusate Sodium TABLET PO SCH ×2 (08:01→19:46)
[2021-10-17] MEDS: Budesonide/Formoterol 160/4.5 1 PUFF INH IH SCH ×2 (08:11→19:57)
[2021-10-17 09:58] LABS: Basophils % 0.3 %; Eosinophils # 0.1 K/mcL (0.0-0.6); Eosinophils % 0.5 %; Hematocrit 22.4 % (35.3-44.9); Immature Granulocytes % 1.1 % (0-4); Lymphocytes # 1.4 K/mcL (0.6-4.6); Lymphocytes % 12.6 %; Mean Corpuscular HGB Conc 31.3 g/dL (31.6-35.5); Mean Corpuscular Hemoglobin 29.2 pg (28.0-33.3); Mean Corpuscular Volume 93.3 fL (83.0-100.0); Monocytes # 0.9 K/mcL (0.0-1.3); Neutrophils # 8.9 K/mcL (1.6-8.9); Platelet Count 257 K/mcL (140-400); Red Cell Distribution Width 15.8 % (11.5-14.5); Segmented Neutrophils % 77.5 %; White Blood Count 11.4 K/mcL (4.3-11.1)
[2021-10-17 10:17] LABS: Alanine Aminotransferase 10 Units/L (7-52); Albumin 3.7 g/dL (3.5-5.7); Albumin/Globulin Ratio 1.5 (1.1-2.2); Alkaline Phosphatase 102 Units/L (34-104); Aspartate Amino Transferase 32 Units/L (13-39); BUN/Creatinine Ratio 25 (6-26); Bilirubin,Total 0.6 mg/dL (0.3-1.0); Blood Urea Nitrogen 16 mg/dL (6-20); Calcium 8.4 mg/dL (8.6-10.3); Carbon Dioxide 33 mEq/L (23-29); Chloride 96 mEq/L (98-107); Globulin 2.5 g/dL (2.4-3.5); Glucose 123 mg/dL (70-105); Magnesium 1.6 mg/dL (1.6-2.6); Osmolality,Calculated 289 (280-300); Phosphorous 3.2 mg/dL (2.7-4.5); Potassium 3.3 mEq/L (3.5-5.1); Sodium 138 mEq/L (136-145); Total Protein 6.2 g/dL (6.4-8.9)
[2021-10-17] MEDS ORDERED: Vancomycin 0 MG in 0.9 % Sodium Chloride 250 ML IVPB SCH (11:00)
[2021-10-17] MEDS ORDERED: Cefepime HCl 2,000 MG in 0.9 % Sodium Chloride Mini Bag 100 ML IVPB SCH (11:30)
[2021-10-17] MEDS ORDERED: Vancomycin 1,000 MG VIAL ONE (11:43)
[2021-10-17] MEDS ORDERED: Heparin 1,000 UNITS/500 mL 500 ML ONE (12:11)
[2021-10-17] MEDS ORDERED: *HR* FentaNYL (PF) 250 MCG/5 ML VIAL ONE (12:13)
[2021-10-17] MEDS ORDERED: *HR* Propofol 200 MG/20 ML VIAL IVP ONE (12:13)
[2021-10-17] MEDS ORDERED: *HR* Midazolam HCl 5 MG/5 ML VIAL IVP ONE (12:13)
[2021-10-17] MEDS ORDERED: *HR* Rocuronium Bromide 50 MG/5 ML VIAL ONE ×2 (12:16→15:18)
[2021-10-17] MEDS ORDERED: *HR* Norepinephrine 4 MG/4 ML VIAL IVC ONE (12:16)
[2021-10-17] MEDS: Doxycycline 100 MG CAPSULE PO SCH ×2 (12:23→19:45)
[2021-10-17 14:08] LABS: ABG Base Excess 5 mEq/L (-2 to 3); ABG Chloride 96 mEq/L (98-107); ABG Glucose 88 mg/dL (60-95); ABG HCO3 30 mEq/L (21-27); ABG Ionized Calcium 1.14 mmol/L (1.15-1.35); ABG Oxygen Saturation 100 % (95-98); ABG PCO2 46 mmHg (35-45); ABG PH 7.42 pH Units (7.32-7.45); ABG PO2 473 mmHg (85-104); ABG TCO2 32 mEq/L (20-26)
[2021-10-17] MEDS ORDERED: Ondansetron 4 MG/2 ML VIAL ONE (14:17)
[2021-10-17] MEDS ORDERED: *HR* HYDROMORPHONE 2 MG/ML VIAL ONE (14:18)
[2021-10-17] MEDS ORDERED: Insulin Regular, Human 100 UNIT/ML IV PRN (14:39)
[2021-10-17] MEDS ORDERED: Naloxone 0.4 MG/ML INJ IVP PRN ×2 (14:39→18:04)
[2021-10-17] MEDS ORDERED: Ondansetron 4 MG/2 ML VIAL IVP PRN (14:39)
[2021-10-17] MEDS ORDERED: *HR* FentaNYL (PF) 100 MCG/2 ML VIAL IVP PRN (14:39)
[2021-10-17] MEDS ORDERED: *HR* Dextrose 50 % in Water (Syg) 50 ML SYRINGE IVP PRN (14:39)
[2021-10-17 16:06] LABS: ABG Base Excess 1 mEq/L (-2 to 3); ABG Chloride 99 mEq/L (98-107); ABG Glucose 127 mg/dL (60-95); ABG HCO3 25 mEq/L (21-27); ABG Ionized Calcium 1.04 mmol/L (1.15-1.35); ABG Oxygen Saturation 98 % (95-98); ABG PCO2 35 mmHg (35-45); ABG PH 7.46 pH Units (7.32-7.45); ABG PO2 91 mmHg (85-104); ABG TCO2 26 mEq/L (20-26)
[2021-10-17] MEDS: Cefepime HCl 2,000 MG in 0.9 % Sodium Chloride Mini Bag 100 ML IVPB SCH ×2 (16:06→23:19)
[2021-10-17] MEDS ORDERED: Artificial Tears SOLN 15 ML BOTTLE BOTH EYES PRN (18:04)
[2021-10-17] MEDS: FentaNYL (PF) 1,000 MCG/100 ML IV.SOLN IVC SCH (18:24)
[2021-10-17] MEDS: Pantoprazole 40 MG VIAL IVP SCH (18:29)
[2021-10-17] MEDS: Ketorolac 30 MG/ML VIAL IVP SCH ×2 (18:29→23:20)
[2021-10-17 18:30] LABS: ABG Base Excess 1 mEq/L (-2 to 3); ABG HCO3 27 mEq/L (21-27); ABG Oxygen Saturation 99 % (95-98); ABG PCO2 50 mmHg (35-45); ABG PH 7.35 pH Units (7.32-7.45); ABG PO2 142 mmHg (85-104); ABG TCO2 29 mEq/L (20-26); Blood Gas Modality ASSIST CONTROL; Blood Gas VT 500 cc
[2021-10-17 19:02] LABS: Basophils % 0.2 %; Eosinophils % 0.1 %; Hematocrit 28.9 % (35.3-44.9); Immature Granulocytes % 1.8 % (0-4); Lymphocytes # 0.8 K/mcL (0.6-4.6); Lymphocytes % 4.8 %; Mean Corpuscular HGB Conc 32.5 g/dL (31.6-35.5); Mean Corpuscular Hemoglobin 28.7 pg (28.0-33.3); Mean Corpuscular Volume 88.4 fL (83.0-100.0); Mean Platelet Volume 10.7 fL (9.4-12.4); Monocytes # 0.7 K/mcL (0.0-1.3); Monocytes % 4.5 %; Neutrophils # 14.7 K/mcL (1.6-8.9); Platelet Count 284 K/mcL (140-400); Red Blood Count 3.27 M/mcL (3.82-4.97); Red Cell Distribution Width 16.1 % (11.5-14.5); Segmented Neutrophils % 88.6 %; White Blood Count 16.6 K/mcL (4.3-11.1)
[2021-10-17 19:05] LABS: Hemoglobin 9.4 g/dL (11.5-15.4)
[2021-10-17 19:23] LABS: BUN/Creatinine Ratio 30 (6-26); Blood Urea Nitrogen 18 mg/dL (6-20); Calcium 8.1 mg/dL (8.6-10.3); Carbon Dioxide 29 mEq/L (23-29); Chloride 101 mEq/L (98-107); Glucose 155 mg/dL (70-105); Magnesium 1.6 mg/dL (1.6-2.6); Osmolality,Calculated 291 (280-300); Phosphorous 3.3 mg/dL (2.7-4.5); Potassium 3.9 mEq/L (3.5-5.1); Sodium 138 mEq/L (136-145)
[2021-10-17] MEDS: Ringers Solution, Lactated 1,000 ML IVC SCH (19:32)
[2021-10-17] MEDS: Norepinephrine 4 MG/254 ML IV.SOLN IVC SCH (19:32)
[2021-10-17] MEDS: traZODone 50 MG TABLET PO SCH (19:45)
[2021-10-17] MEDS: Artificial Tears SOLN 15 ML BOTTLE BOTH EYES SCH ×2 (19:45→23:25)
[2021-10-17] MEDS: QUEtiapine Fumarate 25 MG TABLET PO SCH (19:46)
[2021-10-18] MEDS: FentaNYL (PF) 1,000 MCG/100 ML IV.SOLN IVC SCH ×2 (01:43→09:16)
[2021-10-18] MEDS: Artificial Tears SOLN 15 ML BOTTLE BOTH EYES SCH ×2 (03:32→08:14)
[2021-10-18 03:36] LABS: VBG Ionized Calcium 1.14 mmol/L (1.15-1.35)
[2021-10-18 03:42] LABS: Basophils # 0.1 K/mcL (0.0-0.2); Basophils % 0.2 %; Hematocrit 28.1 % (35.3-44.9); Hemoglobin 8.9 g/dL (11.5-15.4); Immature Granulocytes % 1.6 % (0-4); Lymphocytes # 1.4 K/mcL (0.6-4.6); Lymphocytes % 6.7 %; Mean Corpuscular HGB Conc 31.7 g/dL (31.6-35.5); Mean Corpuscular Hemoglobin 28.6 pg (28.0-33.3); Mean Corpuscular Volume 90.4 fL (83.0-100.0); Mean Platelet Volume 10.5 fL (9.4-12.4); Monocytes # 1.3 K/mcL (0.0-1.3); Monocytes % 6.3 %; Neutrophils # 17.7 K/mcL (1.6-8.9); Platelet Count 320 K/mcL (140-400); Red Blood Count 3.11 M/mcL (3.82-4.97); Red Cell Distribution Width 16.8 % (11.5-14.5); Segmented Neutrophils % 85.2 %; White Blood Count 20.8 K/mcL (4.3-11.1)
[2021-10-18 03:43] LABS: INR 1.3; Prothrombin Time 14.7 Seconds (9.4-12.1)
[2021-10-18 03:46] LABS: Activated Partial Thrombo Time 26.6 Seconds (26.0-36.0)
[2021-10-18] MEDS: Ipratropium/Albuterol Neb 3 ML IH SCH ×6 (03:50→23:00)
[2021-10-18 03:55] LABS: Magnesium 2.1 mg/dL (1.6-2.6); Phosphorous 4.1 mg/dL (2.7-4.5); Potassium 3.9 mEq/L (3.5-5.1)
[2021-10-18 03:56] LABS: ABG Base Excess 2 mEq/L (-2 to 3); ABG HCO3 29 mEq/L (21-27); ABG Oxygen Saturation 99 % (95-98); ABG PCO2 55 mmHg (35-45); ABG PH 7.32 pH Units (7.32-7.45); ABG PO2 142 mmHg (85-104); ABG TCO2 30 mEq/L (20-26); Blood Gas VT 500 cc
[2021-10-18] MEDS: Ringers Solution, Lactated 1,000 ML IVC SCH (03:59)
[2021-10-18] MEDS: Ketorolac 30 MG/ML VIAL IVP SCH ×4 (05:26→23:05)
[2021-10-18] MEDS: Budesonide/Formoterol 160/4.5 1 PUFF INH IH SCH ×2 (07:26→20:05)
[2021-10-18] MEDS: FLUoxetine 20 MG CAPSULE PO SCH (08:09)
[2021-10-18] MEDS: polyethylene glycoL 3350 17 GM POWD.PACK PO SCH (08:09)
[2021-10-18] MEDS: Aspirin Enteric Coated 81 MG Tablet PO SCH (08:09)
[2021-10-18] MEDS: Doxycycline 100 MG CAPSULE PO SCH (08:09)
[2021-10-18] MEDS: Sennosides/Docusate Sodium TABLET PO SCH ×2 (08:09→19:43)
[2021-10-18] MEDS: Vitamin B Complex/Vit C/Vit E 1 EACH TABLET PO SCH (08:09)
[2021-10-18] MEDS: Chlorhexidine Rinse 15 ML MOUTHWASH MM SCH ×2 (08:10→19:43)
[2021-10-18] MEDS: Norepinephrine 4 MG/254 ML IV.SOLN IVC SCH (08:10)
[2021-10-18] MEDS: Pantoprazole 40 MG VIAL IVP SCH (08:12)
[2021-10-18] MEDS: Cefepime HCl 2,000 MG in 0.9 % Sodium Chloride Mini Bag 100 ML IVPB SCH ×3 (08:13→23:04)
[2021-10-18] MEDS ORDERED: Albumin Human 5% 12.5 GM/250 ML IV.SOLN IVPB ONE (09:00)
[2021-10-18 12:17] LABS: ABG Base Excess 3 mEq/L (-2 to 3); ABG HCO3 28 mEq/L (21-27); ABG Oxygen Saturation 97 % (95-98); ABG PCO2 49 mmHg (35-45); ABG PH 7.37 pH Units (7.32-7.45); ABG PO2 90 mmHg (85-104); ABG TCO2 30 mEq/L (20-26)
[2021-10-18] MEDS: hydrOXYzine pamoate 25 MG CAPSULE PO PRN (13:30)
[2021-10-18] MEDS: *HR* LORazepam 0.5 MG TABLET PO PRN (15:31)
[2021-10-18] MEDS: traZODone 50 MG TABLET PO SCH (19:43)
[2021-10-18] MEDS: QUEtiapine Fumarate 25 MG TABLET PO SCH (19:43)
[2021-10-19] MEDS: Ipratropium/Albuterol Neb 3 ML IH SCH ×6 (03:50→23:04)
[2021-10-19 04:19] LABS: Basophils % 0.2 %; Eosinophils # 0.2 K/mcL (0.0-0.6); Eosinophils % 1.1 %; Hematocrit 25.1 % (35.3-44.9); Hemoglobin 7.8 g/dL (11.5-15.4); Immature Granulocytes % 1.1 % (0-4); Lymphocytes # 1.7 K/mcL (0.6-4.6); Lymphocytes % 12.7 %; Mean Corpuscular HGB Conc 31.1 g/dL (31.6-35.5); Mean Corpuscular Hemoglobin 28.8 pg (28.0-33.3); Mean Corpuscular Volume 92.6 fL (83.0-100.0); Mean Platelet Volume 10.6 fL (9.4-12.4); Monocytes % 7.6 %; Neutrophils # 10.1 K/mcL (1.6-8.9); Platelet Count 219 K/mcL (140-400); Red Blood Count 2.71 M/mcL (3.82-4.97); Red Cell Distribution Width 16.8 % (11.5-14.5); Segmented Neutrophils % 77.3 %; White Blood Count 13.1 K/mcL (4.3-11.1)
[2021-10-19 04:36] LABS: Calcium 8.1 mg/dL (8.6-10.3); Potassium 3.7 mEq/L (3.5-5.1)
[2021-10-19] MEDS: Ketorolac 30 MG/ML VIAL IVP SCH ×3 (06:21→16:28)
[2021-10-19] MEDS: Budesonide/Formoterol 160/4.5 1 PUFF INH IH SCH ×2 (07:26→20:03)
[2021-10-19] MEDS: Pantoprazole 40 MG VIAL IVP SCH (08:58)
[2021-10-19] MEDS: Chlorhexidine Rinse 15 ML MOUTHWASH MM SCH ×2 (08:58→19:08)
[2021-10-19] MEDS: FLUoxetine 20 MG CAPSULE PO SCH (08:59)
[2021-10-19] MEDS: polyethylene glycoL 3350 17 GM POWD.PACK PO SCH (08:59)
[2021-10-19] MEDS: Aspirin Enteric Coated 81 MG Tablet PO SCH (08:59)
[2021-10-19] MEDS: Sennosides/Docusate Sodium TABLET PO SCH ×2 (08:59→19:09)
[2021-10-19] MEDS: Cefepime HCl 2,000 MG in 0.9 % Sodium Chloride Mini Bag 100 ML IVPB SCH ×2 (09:00→16:29)
[2021-10-19] MEDS: Vitamin B Complex/Vit C/Vit E 1 EACH TABLET PO SCH (09:01)
[2021-10-19] MEDS: *HR* LORazepam 0.5 MG TABLET PO PRN ×2 (09:50→18:30)
[2021-10-19] MEDS: Albumin Human 5% 12.5 GM/250 ML IV.SOLN IVPB PRN ×6 (09:56→17:53)
[2021-10-19] MEDS ORDERED: Albumin Human 5% 12.5 GM/250 ML IV.SOLN IVC SCH (10:45)
[2021-10-19] MEDS: *HR* OxyCODONE/APAP 5/325 TABLET PO PRN (14:03)
[2021-10-19] MEDS: Norepinephrine 4 MG/254 ML IV.SOLN IVC SCH (18:29)
[2021-10-19] MEDS: traZODone 50 MG TABLET PO SCH (19:08)
[2021-10-19] MEDS: QUEtiapine Fumarate 25 MG TABLET PO SCH (19:09)
[2021-10-20] MEDS: Ketorolac 30 MG/ML VIAL IVP SCH ×5 (00:37→23:18)
[2021-10-20] MEDS: Cefepime HCl 2,000 MG in 0.9 % Sodium Chloride Mini Bag 100 ML IVPB SCH ×3 (00:38→15:16)
[2021-10-20] MEDS: Ipratropium/Albuterol Neb 3 ML IH SCH ×6 (03:57→23:12)
[2021-10-20 04:31] LABS: Basophils # 0.1 K/mcL (0.0-0.2); Basophils % 0.5 %; Eosinophils # 0.4 K/mcL (0.0-0.6); Eosinophils % 3.1 %; Hematocrit 24.1 % (35.3-44.9); Hemoglobin 7.5 g/dL (11.5-15.4); Immature Granulocytes % 1.5 % (0-4); Lymphocytes # 1.4 K/mcL (0.6-4.6); Mean Corpuscular HGB Conc 31.1 g/dL (31.6-35.5); Mean Corpuscular Hemoglobin 28.7 pg (28.0-33.3); Mean Corpuscular Volume 92.3 fL (83.0-100.0); Mean Platelet Volume 11.1 fL (9.4-12.4); Monocytes # 0.8 K/mcL (0.0-1.3); Monocytes % 6.7 %; Neutrophils # 9.2 K/mcL (1.6-8.9); Platelet Count 220 K/mcL (140-400); Red Blood Count 2.61 M/mcL (3.82-4.97); Red Cell Distribution Width 16.7 % (11.5-14.5); Segmented Neutrophils % 76.2 %
[2021-10-20 04:47] LABS: Calcium 8.4 mg/dL (8.6-10.3); Potassium 3.4 mEq/L (3.5-5.1)
[2021-10-20] MEDS: Potassium Chloride 40 MEQ/200 ML BAG IVPB PRN ×2 (05:49→11:16)
[2021-10-20] MEDS: *HR* OxyCODONE/APAP 5/325 TABLET PO PRN ×3 (06:13→19:28)
[2021-10-20] MEDS: Budesonide/Formoterol 160/4.5 1 PUFF INH IH SCH ×2 (07:27→20:28)
[2021-10-20] MEDS: Chlorhexidine Rinse 15 ML MOUTHWASH MM SCH ×2 (08:27→19:29)
[2021-10-20] MEDS: Sennosides/Docusate Sodium TABLET PO SCH ×2 (08:27→19:29)
[2021-10-20] MEDS: Pantoprazole 40 MG VIAL IVP SCH (08:27)
[2021-10-20] MEDS: Vitamin B Complex/Vit C/Vit E 1 EACH TABLET PO SCH (08:27)
[2021-10-20] MEDS: Aspirin Enteric Coated 81 MG Tablet PO SCH (08:27)
[2021-10-20] MEDS: polyethylene glycoL 3350 17 GM POWD.PACK PO SCH (08:27)
[2021-10-20] MEDS: FLUoxetine 20 MG CAPSULE PO SCH (08:27)
[2021-10-20] MEDS: *HR* LORazepam 0.5 MG TABLET PO PRN ×2 (08:47→19:28)
[2021-10-20] MEDS ORDERED: Chlorhexidine Rinse 15 ML MOUTHWASH MM SCH (09:00)
[2021-10-20] MEDS: hydrOXYzine pamoate 25 MG CAPSULE PO PRN (13:52)
[2021-10-20] MEDS ORDERED: Albumin Human 5% 12.5 GM/250 ML IV.SOLN IVPB ONE (16:00)
[2021-10-20] MEDS: Norepinephrine 4 MG/254 ML IV.SOLN IVC SCH (16:58)
[2021-10-20] MEDS: QUEtiapine Fumarate 25 MG TABLET PO SCH (19:28)
[2021-10-20] MEDS: traZODone 50 MG TABLET PO SCH (19:28)
[2021-10-21] MEDS: Norepinephrine 4 MG/254 ML IV.SOLN IVC SCH ×2 (01:23→23:14)
[2021-10-21] MEDS: *HR* OxyCODONE/APAP 5/325 TABLET PO PRN ×3 (03:21→14:32)
[2021-10-21] MEDS: Ipratropium/Albuterol Neb 3 ML IH SCH ×6 (03:43→23:31)
[2021-10-21 04:19] LABS: Basophils # 0.1 K/mcL (0.0-0.2); Basophils % 0.7 %; Eosinophils # 0.6 K/mcL (0.0-0.6); Hematocrit 24.6 % (35.3-44.9); Hemoglobin 7.6 g/dL (11.5-15.4); Immature Granulocytes % 1.4 % (0-4); Lymphocytes # 1.4 K/mcL (0.6-4.6); Lymphocytes % 11.8 %; Mean Corpuscular HGB Conc 30.9 g/dL (31.6-35.5); Mean Corpuscular Hemoglobin 28.7 pg (28.0-33.3); Mean Corpuscular Volume 92.8 fL (83.0-100.0); Mean Platelet Volume 11.2 fL (9.4-12.4); Monocytes # 0.9 K/mcL (0.0-1.3); Platelet Count 243 K/mcL (140-400); Red Blood Count 2.65 M/mcL (3.82-4.97); Red Cell Distribution Width 16.6 % (11.5-14.5); Segmented Neutrophils % 74.1 %; White Blood Count 12.2 K/mcL (4.3-11.1)
[2021-10-21 04:39] LABS: Calcium 8.2 mg/dL (8.6-10.3); Magnesium 1.8 mg/dL (1.6-2.6); Phosphorous 2.6 mg/dL (2.7-4.5); Potassium 3.9 mEq/L (3.5-5.1)
[2021-10-21] MEDS: Ketorolac 30 MG/ML VIAL IVP SCH ×3 (05:00→17:22)
[2021-10-21] MEDS: Sennosides/Docusate Sodium TABLET PO SCH ×2 (08:28→19:35)
[2021-10-21] MEDS: FLUoxetine 20 MG CAPSULE PO SCH (08:28)
[2021-10-21] MEDS: Budesonide/Formoterol 160/4.5 1 PUFF INH IH SCH ×2 (08:28→19:47)
[2021-10-21] MEDS: Aspirin Enteric Coated 81 MG Tablet PO SCH (08:29)
[2021-10-21] MEDS: Chlorhexidine Rinse 15 ML MOUTHWASH MM SCH ×2 (08:29→19:36)
[2021-10-21] MEDS: Vitamin B Complex/Vit C/Vit E 1 EACH TABLET PO SCH (08:29)
[2021-10-21] MEDS: Pantoprazole 40 MG VIAL IVP SCH (08:29)
[2021-10-21] MEDS: polyethylene glycoL 3350 17 GM POWD.PACK PO SCH (08:29)
[2021-10-21] MEDS: Albumin Human 5% 12.5 GM/250 ML IV.SOLN IVC SCH ×2 (08:43→12:52)
[2021-10-21] MEDS: *HR* LORazepam 0.5 MG TABLET PO PRN ×2 (09:35→20:43)
[2021-10-21] MEDS ORDERED: Furosemide 40 MG/4 ML VIAL IVP ONE (10:17)
[2021-10-21] MEDS ORDERED: 0.9 % Sodium Chloride 250 ML ONE (12:56)
[2021-10-21] MEDS: traZODone 50 MG TABLET PO SCH (19:35)
[2021-10-21] MEDS: QUEtiapine Fumarate 25 MG TABLET PO SCH (19:35)
[2021-10-21] MEDS ORDERED: Furosemide 20 MG/2 ML VIAL IVP ONE (20:00)
[2021-10-22] MEDS: *HR* OxyCODONE/APAP 5/325 TABLET PO PRN ×3 (00:07→10:06)
[2021-10-22] MEDS: Ipratropium/Albuterol Neb 3 ML IH SCH ×6 (03:05→23:22)
[2021-10-22 03:48] LABS: Basophils % 0.3 %; Eosinophils # 0.6 K/mcL (0.0-0.6); Eosinophils % 4.3 %; Hematocrit 31.2 % (35.3-44.9); Immature Granulocytes % 1.1 % (0-4); Lymphocytes # 1.1 K/mcL (0.6-4.6); Lymphocytes % 8.8 %; Mean Corpuscular HGB Conc 31.4 g/dL (31.6-35.5); Mean Corpuscular Hemoglobin 28.5 pg (28.0-33.3); Mean Corpuscular Volume 90.7 fL (83.0-100.0); Mean Platelet Volume 11.1 fL (9.4-12.4); Monocytes # 1.1 K/mcL (0.0-1.3); Monocytes % 8.2 %; Platelet Count 213 K/mcL (140-400); Red Blood Count 3.44 M/mcL (3.82-4.97); Red Cell Distribution Width 16.9 % (11.5-14.5); Segmented Neutrophils % 77.3 %
[2021-10-22 03:53] LABS: Hemoglobin 9.8 g/dL (11.5-15.4)
[2021-10-22 04:07] LABS: Calcium 8.7 mg/dL (8.6-10.3); Potassium 4.2 mEq/L (3.5-5.1)
[2021-10-22] MEDS: FLUoxetine 20 MG CAPSULE PO SCH (07:31)
[2021-10-22] MEDS: Sennosides/Docusate Sodium TABLET PO SCH ×2 (07:31→21:48)
[2021-10-22] MEDS: Chlorhexidine Rinse 15 ML MOUTHWASH MM SCH ×2 (07:31→19:37)
[2021-10-22] MEDS: Aspirin Enteric Coated 81 MG Tablet PO SCH (07:31)
[2021-10-22] MEDS: Vitamin B Complex/Vit C/Vit E 1 EACH TABLET PO SCH (07:31)
[2021-10-22] MEDS: Pantoprazole 40 MG VIAL IVP SCH (07:32)
[2021-10-22] MEDS: polyethylene glycoL 3350 17 GM POWD.PACK PO SCH (07:32)
[2021-10-22] MEDS: *HR* LORazepam 0.5 MG TABLET PO PRN ×2 (07:45→14:42)
[2021-10-22] MEDS: Furosemide 40 MG/4 ML VIAL IVP SCH (07:57)
[2021-10-22] MEDS: Budesonide/Formoterol 160/4.5 1 PUFF INH IH SCH ×2 (11:45→20:07)
[2021-10-22] MEDS: Cefepime HCl 2,000 MG in 0.9 % Sodium Chloride 10 ML IVP SCH (17:09)
[2021-10-22] MEDS ORDERED: Furosemide 40 MG/4 ML VIAL IVP ONE (18:00)
[2021-10-22] MEDS: traZODone 50 MG TABLET PO SCH (19:34)
[2021-10-22] MEDS: QUEtiapine Fumarate 25 MG TABLET PO SCH (19:34)
[2021-10-22] MEDS: Norepinephrine 4 MG/254 ML IV.SOLN IVC SCH (19:37)
[2021-10-23] MEDS: *HR* OxyCODONE/APAP 5/325 TABLET PO PRN ×3 (00:16→20:11)
[2021-10-23 04:03] LABS: Basophils # 0.1 K/mcL (0.0-0.2); Basophils % 0.6 %; Eosinophils # 0.6 K/mcL (0.0-0.6); Eosinophils % 5.3 %; Hematocrit 31.1 % (35.3-44.9); Immature Granulocytes % 1.1 % (0-4); Lymphocytes # 1.8 K/mcL (0.6-4.6); Lymphocytes % 15.4 %; Mean Corpuscular HGB Conc 32.2 g/dL (31.6-35.5); Mean Corpuscular Hemoglobin 28.7 pg (28.0-33.3); Mean Corpuscular Volume 89.4 fL (83.0-100.0); Monocytes # 1.2 K/mcL (0.0-1.3); Monocytes % 10.2 %; Neutrophils # 7.9 K/mcL (1.6-8.9); Platelet Count 233 K/mcL (140-400); Red Blood Count 3.48 M/mcL (3.82-4.97); Red Cell Distribution Width 16.8 % (11.5-14.5); Segmented Neutrophils % 67.4 %; White Blood Count 11.7 K/mcL (4.3-11.1)
[2021-10-23] MEDS: Ipratropium/Albuterol Neb 3 ML IH SCH ×6 (04:17→23:50)
[2021-10-23 04:20] LABS: Calcium 8.7 mg/dL (8.6-10.3); Potassium 3.8 mEq/L (3.5-5.1)
[2021-10-23] MEDS: Cefepime HCl 2,000 MG in 0.9 % Sodium Chloride 10 ML IVP SCH ×2 (06:09→18:30)
[2021-10-23] MEDS: Budesonide/Formoterol 160/4.5 1 PUFF INH IH SCH ×2 (08:01→19:58)
[2021-10-23] MEDS: FLUoxetine 20 MG CAPSULE PO SCH (08:53)
[2021-10-23] MEDS: Vitamin B Complex/Vit C/Vit E 1 EACH TABLET PO SCH (08:54)
[2021-10-23] MEDS: Chlorhexidine Rinse 15 ML MOUTHWASH MM SCH (08:55)
[2021-10-23] MEDS: Furosemide 40 MG/4 ML VIAL IVP SCH (08:55)
[2021-10-23] MEDS: Pantoprazole 40 MG VIAL IVP SCH (08:55)
[2021-10-23] MEDS: Aspirin Enteric Coated 81 MG Tablet PO SCH (08:56)
[2021-10-23] MEDS: polyethylene glycoL 3350 17 GM POWD.PACK PO SCH (08:56)
[2021-10-23] MEDS: Sennosides/Docusate Sodium TABLET PO SCH ×2 (08:56→20:04)
[2021-10-23] MEDS ORDERED: *HR* Acetaminophen w/Cod 300-30 mg 1 TAB TABLET PO PRN ×2 (11:25→13:29)
[2021-10-23] MEDS ORDERED: Naloxone 0.4 MG/ML INJ IVP PRN (13:29)
[2021-10-23] MEDS ORDERED: Ondansetron 4 MG/2 ML VIAL IVP PRN (13:29)
[2021-10-23] MEDS ORDERED: Acetaminophen 325 MG TABLET PO PRN (13:29)
[2021-10-23] MEDS ORDERED: Albuterol 2.5 MG/3 ML NEBULIZER IH PRN (13:29)
[2021-10-23] MEDS ORDERED: *HR* Dextrose 50 % in Water (Syg) 50 ML SYRINGE IVP PRN (13:29)
[2021-10-23] MEDS ORDERED: Artificial Tears SOLN 15 ML BOTTLE BOTH EYES PRN (13:29)
[2021-10-23] MEDS ORDERED: *HR* Promethazine 25 MG/ML VIAL IM PRN (13:29)
[2021-10-23] MEDS ORDERED: Potassium Chloride 40 MEQ/200 ML BAG IVPB PRN (13:29)
[2021-10-23] MEDS: QUEtiapine Fumarate 25 MG TABLET PO SCH (20:01)
[2021-10-23] MEDS: traZODone 50 MG TABLET PO SCH (20:02)
[2021-10-23] MEDS ORDERED: Chlorhexidine Rinse 15 ML MOUTHWASH MM SCH (21:00)
[2021-10-24] MEDS: *HR* LORazepam 0.5 MG TABLET PO PRN ×2 (00:02→08:48)
[2021-10-24 03:56] LABS: Basophils # 0.1 K/mcL (0.0-0.2); Eosinophils # 0.5 K/mcL (0.0-0.6); Hematocrit 30.9 % (35.3-44.9); Hemoglobin 9.9 g/dL (11.5-15.4); Immature Granulocytes % 1.7 % (0-4); Lymphocytes % 18.9 %; Mean Corpuscular Hemoglobin 29.2 pg (28.0-33.3); Mean Corpuscular Volume 91.2 fL (83.0-100.0); Mean Platelet Volume 10.8 fL (9.4-12.4); Monocytes # 1.3 K/mcL (0.0-1.3); Monocytes % 12.3 %; Neutrophils # 6.4 K/mcL (1.6-8.9); Platelet Count 214 K/mcL (140-400); Red Blood Count 3.39 M/mcL (3.82-4.97); Red Cell Distribution Width 16.7 % (11.5-14.5); Segmented Neutrophils % 61.1 %; White Blood Count 10.5 K/mcL (4.3-11.1)
[2021-10-24] MEDS: *HR* OxyCODONE/APAP 5/325 TABLET PO PRN ×4 (04:04→21:19)
[2021-10-24] MEDS: Ipratropium/Albuterol Neb 3 ML IH SCH ×6 (04:07→23:19)
[2021-10-24 04:14] LABS: BUN/Creatinine Ratio 35 (6-26); Blood Urea Nitrogen 23 mg/dL (6-20); Calcium 8.6 mg/dL (8.6-10.3); Carbon Dioxide 26 mEq/L (23-29); Chloride 110 mEq/L (98-107); Glucose 87 mg/dL (70-105); Osmolality,Calculated 297 (280-300); Potassium 3.5 mEq/L (3.5-5.1); Sodium 142 mEq/L (136-145)
[2021-10-24] MEDS: Cefepime HCl 2,000 MG in 0.9 % Sodium Chloride 10 ML IVP SCH ×2 (06:30→18:24)
[2021-10-24] MEDS: Furosemide 40 MG/4 ML VIAL IVP SCH (08:43)
[2021-10-24] MEDS: Pantoprazole 40 MG VIAL IVP SCH (08:43)
[2021-10-24] MEDS: Sennosides/Docusate Sodium TABLET PO SCH ×2 (08:47→21:13)
[2021-10-24] MEDS: Vitamin B Complex/Vit C/Vit E 1 EACH TABLET PO SCH (08:48)
[2021-10-24] MEDS: FLUoxetine 20 MG CAPSULE PO SCH (08:48)
[2021-10-24] MEDS: hydrOXYzine pamoate 25 MG CAPSULE PO PRN ×2 (08:48→17:11)
[2021-10-24] MEDS: Aspirin Enteric Coated 81 MG Tablet PO SCH (08:49)
[2021-10-24] MEDS: polyethylene glycoL 3350 17 GM POWD.PACK PO SCH (08:49)
[2021-10-24] MEDS: Budesonide/Formoterol 160/4.5 1 PUFF INH IH SCH ×2 (11:03→20:00)
[2021-10-24] MEDS: 3% Sodium Chloride Inhalation 4 ML VIAL.NEB IH SCH ×4 (11:46→20:00)
[2021-10-24] MEDS: Albuterol 2.5 MG/3 ML NEBULIZER IH SCH ×4 (11:47→23:20)
[2021-10-24 14:19] LABS: % Iron Saturation 6 % (15-50); Iron 15 mcg/dL (50-170); Transferrin 177 mg/dL (203-362)
[2021-10-24 14:37] LABS: Ferritin 255 ng/mL (10-120)
[2021-10-24] MEDS: Vancomycin 1,250 MG/262.5 ML IV.SOLN IVPB SCH (15:46)
[2021-10-24] MEDS: Norepinephrine 4 MG/254 ML IV.SOLN IVC SCH (16:52)
[2021-10-24] MEDS: QUEtiapine Fumarate 25 MG TABLET PO SCH (21:13)
[2021-10-24] MEDS: traZODone 50 MG TABLET PO SCH (21:14)
[2021-10-25] MEDS: Ipratropium/Albuterol Neb 3 ML IH SCH (03:40)
[2021-10-25] MEDS: Albuterol 2.5 MG/3 ML NEBULIZER IH SCH ×6 (03:40→23:00)
[2021-10-25] MEDS: 3% Sodium Chloride Inhalation 4 ML VIAL.NEB IH SCH ×4 (03:40→20:16)
[2021-10-25 04:29] LABS: Basophils # 0.1 K/mcL (0.0-0.2); Basophils % 1.1 %; Eosinophils # 0.6 K/mcL (0.0-0.6); Eosinophils % 5.6 %; Hematocrit 31.1 % (35.3-44.9); Hemoglobin 9.7 g/dL (11.5-15.4); Immature Granulocytes % 1.7 % (0-4); Lymphocytes # 2.1 K/mcL (0.6-4.6); Lymphocytes % 18.5 %; Mean Corpuscular HGB Conc 31.2 g/dL (31.6-35.5); Mean Corpuscular Hemoglobin 28.4 pg (28.0-33.3); Mean Corpuscular Volume 90.9 fL (83.0-100.0); Mean Platelet Volume 11.1 fL (9.4-12.4); Monocytes # 1.6 K/mcL (0.0-1.3); Monocytes % 13.6 %; Neutrophils # 6.8 K/mcL (1.6-8.9); Platelet Count 228 K/mcL (140-400); Red Blood Count 3.42 M/mcL (3.82-4.97); Segmented Neutrophils % 59.5 %; White Blood Count 11.4 K/mcL (4.3-11.1)
[2021-10-25 04:48] LABS: BUN/Creatinine Ratio 36 (6-26); Blood Urea Nitrogen 22 mg/dL (6-20); Calcium 8.6 mg/dL (8.6-10.3); Carbon Dioxide 26 mEq/L (23-29); Chloride 110 mEq/L (98-107); Glucose 89 mg/dL (70-105); Osmolality,Calculated 297 (280-300); Potassium 4.1 mEq/L (3.5-5.1); Sodium 142 mEq/L (136-145)
[2021-10-25] MEDS: Cefepime HCl 2,000 MG in 0.9 % Sodium Chloride 10 ML IVP SCH ×2 (04:51→20:40)
[2021-10-25] MEDS: *HR* OxyCODONE/APAP 5/325 TABLET PO PRN ×3 (06:35→15:23)
[2021-10-25] MEDS: Budesonide/Formoterol 160/4.5 1 PUFF INH IH SCH ×2 (07:40→20:16)
[2021-10-25] MEDS: hydrOXYzine pamoate 25 MG CAPSULE PO PRN (08:25)
[2021-10-25] MEDS: FLUoxetine 20 MG CAPSULE PO SCH (08:46)
[2021-10-25] MEDS: Sennosides/Docusate Sodium TABLET PO SCH ×2 (08:46→20:41)
[2021-10-25] MEDS: Vitamin B Complex/Vit C/Vit E 1 EACH TABLET PO SCH (08:46)
[2021-10-25] MEDS: Furosemide 40 MG/4 ML VIAL IVP SCH (08:47)
[2021-10-25] MEDS: Aspirin Enteric Coated 81 MG Tablet PO SCH (08:47)
[2021-10-25] MEDS: Pantoprazole 40 MG VIAL IVP SCH (08:49)
[2021-10-25] MEDS: polyethylene glycoL 3350 17 GM POWD.PACK PO SCH (08:49)
[2021-10-25] MEDS: *HR* LORazepam 0.5 MG TABLET PO PRN (10:36)
[2021-10-25] MEDS ORDERED: Iopamidol - 370 500 ML MLS IVP ONE (11:06)
[2021-10-25] MEDS ORDERED: Lidocaine -MPF 1% 5 ML AMPUL INFILT ONE (12:24)
[2021-10-25] MEDS: Vancomycin 1,250 MG/262.5 ML IV.SOLN IVPB SCH (16:36)
[2021-10-25] MEDS ORDERED: niCARdipine 20 MG/200 ML MLS IVC ONE (18:03)
[2021-10-25] MEDS ORDERED: Albuterol 2.5 MG/3 ML NEBULIZER ONE (20:12)
[2021-10-25] MEDS: traZODone 50 MG TABLET PO SCH (20:41)
[2021-10-25] MEDS: QUEtiapine Fumarate 25 MG TABLET PO SCH (20:41)
[2021-10-26] MEDS: *HR* OxyCODONE/APAP 5/325 TABLET PO PRN ×4 (01:48→22:12)
[2021-10-26 04:16] LABS: Basophils # 0.1 K/mcL (0.0-0.2); Eosinophils # 0.5 K/mcL (0.0-0.6); Eosinophils % 5.2 %; Hematocrit 30.6 % (35.3-44.9); Hemoglobin 9.5 g/dL (11.5-15.4); Lymphocytes # 1.3 K/mcL (0.6-4.6); Lymphocytes % 12.8 %; Mean Corpuscular Hemoglobin 28.1 pg (28.0-33.3); Mean Corpuscular Volume 90.5 fL (83.0-100.0); Mean Platelet Volume 11.3 fL (9.4-12.4); Monocytes # 1.3 K/mcL (0.0-1.3); Monocytes % 13.2 %; Neutrophils # 6.7 K/mcL (1.6-8.9); Platelet Count 202 K/mcL (140-400); Red Blood Count 3.38 M/mcL (3.82-4.97); Red Cell Distribution Width 16.7 % (11.5-14.5); Segmented Neutrophils % 66.8 %; White Blood Count 10.1 K/mcL (4.3-11.1)
[2021-10-26] MEDS: Albuterol 2.5 MG/3 ML NEBULIZER IH SCH ×6 (04:26→23:05)
[2021-10-26] MEDS: 3% Sodium Chloride Inhalation 4 ML VIAL.NEB IH SCH ×4 (04:27→20:12)
[2021-10-26 04:38] LABS: BUN/Creatinine Ratio 33 (6-26); Blood Urea Nitrogen 20 mg/dL (6-20); Calcium 8.5 mg/dL (8.6-10.3); Carbon Dioxide 24 mEq/L (23-29); Chloride 111 mEq/L (98-107); Glucose 110 mg/dL (70-105); Magnesium 1.6 mg/dL (1.6-2.6); Osmolality,Calculated 297 (280-300); Phosphorous 3.5 mg/dL (2.7-4.5); Potassium 3.6 mEq/L (3.5-5.1); Sodium 142 mEq/L (136-145)
[2021-10-26] MEDS: Cefepime HCl 2,000 MG in 0.9 % Sodium Chloride 10 ML IVP SCH ×3 (05:21→22:06)
[2021-10-26] MEDS: Budesonide/Formoterol 160/4.5 1 PUFF INH IH SCH ×2 (07:21→20:12)
[2021-10-26] MEDS: Vitamin B Complex/Vit C/Vit E 1 EACH TABLET PO SCH (10:05)
[2021-10-26] MEDS: FLUoxetine 20 MG CAPSULE PO SCH (10:05)
[2021-10-26] MEDS: polyethylene glycoL 3350 17 GM POWD.PACK PO SCH (10:06)
[2021-10-26] MEDS: Aspirin Enteric Coated 81 MG Tablet PO SCH (10:06)
[2021-10-26] MEDS: Sennosides/Docusate Sodium TABLET PO SCH ×2 (10:06→20:41)
[2021-10-26] MEDS: Furosemide 40 MG/4 ML VIAL IVP SCH (10:07)
[2021-10-26] MEDS: *HR* LORazepam 0.5 MG TABLET PO PRN ×2 (10:20→18:40)
[2021-10-26] MEDS: Pantoprazole 40 MG VIAL IVP SCH (15:34)
[2021-10-26] MEDS: Vancomycin 1,250 MG/262.5 ML IV.SOLN IVPB SCH (17:03)
[2021-10-26 17:59] LABS: Influenza A PCR Negative (Negative); Influenza B PCR Negative (Negative); Resp. Syncytial Virus PCR Negative (Negative); SARS-CoV-2 by PCR (In House) Negative (Negative)
[2021-10-26] MEDS: QUEtiapine Fumarate 25 MG TABLET PO SCH (20:42)
[2021-10-26] MEDS: traZODone 50 MG TABLET PO SCH (20:42)
[2021-10-27] MEDS: Albuterol 2.5 MG/3 ML NEBULIZER IH SCH ×4 (03:56→15:34)
[2021-10-27] MEDS: 3% Sodium Chloride Inhalation 4 ML VIAL.NEB IH SCH ×3 (03:57→15:34)
[2021-10-27 04:00] LABS: Basophils # 0.1 K/mcL (0.0-0.2); Basophils % 0.9 %; Eosinophils # 0.6 K/mcL (0.0-0.6); Eosinophils % 5.4 %; Hematocrit 30.9 % (35.3-44.9); Hemoglobin 9.6 g/dL (11.5-15.4); Lymphocytes # 2.1 K/mcL (0.6-4.6); Lymphocytes % 19.4 %; Mean Corpuscular HGB Conc 31.1 g/dL (31.6-35.5); Mean Corpuscular Hemoglobin 28.3 pg (28.0-33.3); Mean Corpuscular Volume 91.2 fL (83.0-100.0); Mean Platelet Volume 11.3 fL (9.4-12.4); Monocytes # 1.3 K/mcL (0.0-1.3); Monocytes % 12.2 %; Neutrophils # 6.7 K/mcL (1.6-8.9); Platelet Count 191 K/mcL (140-400); Red Blood Count 3.39 M/mcL (3.82-4.97); Red Cell Distribution Width 16.5 % (11.5-14.5); Segmented Neutrophils % 61.1 %
[2021-10-27 04:22] LABS: BUN/Creatinine Ratio 30 (6-26); Blood Urea Nitrogen 17 mg/dL (6-20); Calcium 8.4 mg/dL (8.6-10.3); Carbon Dioxide 24 mEq/L (23-29); Chloride 110 mEq/L (98-107); Glucose 94 mg/dL (70-105); Magnesium 1.5 mg/dL (1.6-2.6); Osmolality,Calculated 293 (280-300); Phosphorous 3.3 mg/dL (2.7-4.5); Potassium 3.4 mEq/L (3.5-5.1); Sodium 141 mEq/L (136-145)
[2021-10-27] MEDS: Cefepime HCl 2,000 MG in 0.9 % Sodium Chloride 10 ML IVP SCH (05:22)
[2021-10-27] MEDS: *HR* OxyCODONE/APAP 5/325 TABLET PO PRN ×2 (05:37→12:48)
[2021-10-27] MEDS: Budesonide/Formoterol 160/4.5 1 PUFF INH IH SCH (07:36)
[2021-10-27] MEDS: Acetylcysteine 10% 2 ML INHSOL IH SCH ×3 (07:56→15:34)
[2021-10-27] MEDS: FLUoxetine 20 MG CAPSULE PO SCH (08:23)
[2021-10-27] MEDS: polyethylene glycoL 3350 17 GM POWD.PACK PO SCH (08:24)
[2021-10-27] MEDS: Furosemide 40 MG/4 ML VIAL IVP SCH (08:24)
[2021-10-27] MEDS: Aspirin Enteric Coated 81 MG Tablet PO SCH (08:24)
[2021-10-27] MEDS: Pantoprazole 40 MG VIAL IVP SCH (08:24)
[2021-10-27] MEDS: Vitamin B Complex/Vit C/Vit E 1 EACH TABLET PO SCH (08:24)
[2021-10-27] MEDS: Sennosides/Docusate Sodium TABLET PO SCH (08:24)
[2021-10-27] MEDS: *HR* LORazepam 0.5 MG TABLET PO PRN ×2 (08:26→18:03)
[2021-10-27 16:07] VITALS: BP 114/28; PULSE 95; TEMP 97.9; O2SAT 95
== END 2021-10-27 18:25 | DRG 710 ==
LOC: SAMDAY 05:58 → ICNU 12:11 → 2NNU 10-14 12:28 → ICNU 10-17 14:25 → 2NNU 10-24 07:05
PROVIDERS: ADMIT Thoracic Surgery (Cardiothoracic Vascular Surgery); ATTEND Thoracic Surgery (Cardiothoracic Vascular Surgery)

== ENCOUNTER 2021-12-24 20:06 | Inpatient (IN) ==
[2021-12-24 20:53] LABS: Basophils # 0.1 K/mcL (0.0-0.2); Basophils % 0.2 %; Hematocrit 25.1 % (35.3-44.9); Hemoglobin 7.7 g/dL (11.5-15.4); Lymphocytes # 1.5 K/mcL (0.6-4.6); Lymphocytes % 6.5 %; Mean Corpuscular HGB Conc 30.7 g/dL (31.6-35.5); Mean Corpuscular Hemoglobin 29.4 pg (28.0-33.3); Mean Corpuscular Volume 95.8 fL (83.0-100.0); Mean Platelet Volume 10.5 fL (9.4-12.4); Monocytes % 8.9 %; Platelet Count 245 K/mcL (140-400); Red Blood Count 2.62 M/mcL (3.82-4.97); Red Cell Distribution Width 15.9 % (11.5-14.5); Segmented Neutrophils % 83.4 %
[2021-12-24] MEDS ORDERED: methylPREDNISolone 125 MG/2 ML VIAL IVP ONE (21:06)
[2021-12-24] MEDS ORDERED: Cefepime HCl 2,000 MG in 0.9 % Sodium Chloride 10 ML IVP ONE (21:06)
[2021-12-24] MEDS ORDERED: Aspirin 325 MG TABLET PO ONE (21:09)
[2021-12-24 21:18] LABS: Calcium 8.8 mg/dL (8.6-10.3); Potassium 4.5 mEq/L (3.5-5.1); Troponin I 0.03 ng/mL (< 0.04)
[2021-12-24 21:22] LABS: White Blood Count 22.8 K/mcL (4.3-11.1)
[2021-12-24 22:14] LABS: Adenovirus Not Detected (Not Detect); Coronavirus 229E Not Detected (Not Detect); Coronavirus HKU1 Not Detected (Not Detect)
[2021-12-24 22:15] LABS: Bordetella Pertussis Not Detected (Not Detect); Chlamydophila pneumoniae Not Detected (Not Detect); Coronavirus NL63 Not Detected (Not Detect); Coronavirus OC43 Not Detected (Not Detect); Human Metapneumovirus Not Detected (Not Detect); Human Rhinovirus/Enterovirus Not Detected (Not Detect); Influenza A Subtype 2009 H1 Not Detected (Not Detect); Influenza B Not Detected (Not Detect); Mycoplasma pneumoniae Not Detected (Not Detect); Parainfluenza Virus 1 Not Detected (Not Detect); Parainfluenza Virus 2 Not Detected (Not Detect); Parainfluenza Virus 3 Not Detected (Not Detect); Parainfluenza Virus 4 Not Detected (Not Detect); Respiratory Syncytial Virus Not Detected (Not Detect); SARS-CoV-2 Not Detected (Not Detect)
[2021-12-24 22:20] LABS: ABG Base Excess -2 mEq/L (-2 to 3); ABG HCO3 23 mEq/L (21-27); ABG Oxygen Saturation 84 % (95-98); ABG PCO2 40 mmHg (35-45); ABG PH 7.38 pH Units (7.32-7.45); ABG PO2 49 mmHg (85-104); ABG TCO2 25 mEq/L (20-26)
[2021-12-24] MEDS ORDERED: Furosemide 40 MG/4 ML VIAL IVP ONE (22:45)
[2021-12-24] MEDS ORDERED: Ondansetron 4 MG/2 ML VIAL IVP PRN (23:30)
[2021-12-24] MEDS ORDERED: Naloxone 0.4 MG/ML INJ IVP PRN (23:30)
[2021-12-24] MEDS ORDERED: Melatonin 3 MG TABLET PO PRN (23:30)
[2021-12-25 00:20] LABS: Bacteria,Urine Few per hpf (None-Few); Bilirubin,Urine Negative (Negative); Blood,Urine Trace (Negative); Clarity,Urine Turbid (Clear); Color,Urine Yellow (Yellow); Glucose,Urine (UA) Normal (Normal); Hyaline Casts,Urine Few per lpf (None Seen); Ketones,Urine 10 mg/dL (Negative); Leukocyte Esterase,Urine Large (Negative); Mucus,Urine Few per lpf (None-Few); Nitrite,Urine Positive (Negative); Protein,Urine 200 mg/dL (Neg-Trace); Squamous Epithelial Cell,Urine Moderate per hpf (None-Few); Urobilinogen,Urine Normal (Normal); WBC,Urine 30-50 per hpf (0-3)
[2021-12-25] MEDS ORDERED: *HR* LORazepam 2 MG/ML VIAL IVP ONE (01:07)
[2021-12-25] MEDS ORDERED: Morphine Sulfate 2 MG/ML SYRINGE IVP ONE (02:50)
[2021-12-25] MEDS ORDERED: Albumin 25% 25gram/100mL 25 GM/100 ML IV.SOLN IVPB ONE (03:09)
[2021-12-25] MEDS: Levalbuterol Neb 1.25 MG/3 ML IH SCH ×4 (04:09→22:15)
[2021-12-25] MEDS: Ipratropium 1 PUFF INHALER IH SCH ×2 (04:10→07:34)
[2021-12-25] MEDS: Vancomycin 1,250 MG/262.5 ML IV.SOLN IVPB SCH (04:33)
[2021-12-25] MEDS ORDERED: MethylPREDNISolone 40 MG/ML VIAL IVP SCH (06:00)
[2021-12-25] MEDS ORDERED: *HR* Heparin 5,000 UNIT/ML VIAL SQ SCH (06:00)
[2021-12-25] MEDS ORDERED: 0.9 % Sodium Chloride 500 ML IVC ONE (06:47)
[2021-12-25] MEDS ORDERED: 0.9 % Sodium Chloride 500 ML ONE (06:50)
[2021-12-25] MEDS ORDERED: cefTRIAXone 1,000 MG in 0.9 % Sodium Chloride Mini Bag 100 ML IVPB SCH (09:00)
[2021-12-25 09:04] LABS: Hemoglobin 7.5 g/dL (11.5-15.4); Mean Corpuscular Hemoglobin 28.6 pg (28.0-33.3); Red Blood Count 2.62 M/mcL (3.82-4.97); Red Cell Distribution Width 15.9 % (11.5-14.5)
[2021-12-25 09:05] LABS: Hematocrit 25.4 % (35.3-44.9); Mean Corpuscular HGB Conc 29.5 g/dL (31.6-35.5); Mean Corpuscular Volume 96.9 fL (83.0-100.0); Mean Platelet Volume 10.8 fL (9.4-12.4); Platelet Count 281 K/mcL (140-400); White Blood Count 25.5 K/mcL (4.3-11.1)
[2021-12-25 09:26] LABS: Calcium 8.8 mg/dL (8.6-10.3); Potassium 5.1 mEq/L (3.5-5.1)
[2021-12-25 09:29] LABS: % Iron Saturation 5 % (15-50); Iron 15 mcg/dL (50-170); Transferrin 211 mg/dL (203-362)
[2021-12-25 09:47] LABS: Ferritin 164 ng/mL (10-120)
[2021-12-25 09:52] LABS: Folate 16.2 ng/mL (3.0-16.0)
[2021-12-25] MEDS: Azithromycin 500 MG in 0.9 % Sodium Chloride 250 ML IVPB SCH (10:03)
[2021-12-25] MEDS: Magnesium Oxide 400 MG TABLET PO SCH (12:37)
[2021-12-25] MEDS: Acetaminophen 325 MG TABLET PO PRN ×2 (13:21→17:33)
[2021-12-25] MEDS: Piperacillin/Tazobactam 3.375 GM in 0.9 % Sodium Chloride Mini Bag 100 ML IVPB SCH ×2 (13:25→20:50)
[2021-12-25] MEDS ORDERED: Iopamidol - 370 500 ML MLS IVP ONE (14:19)
[2021-12-25] MEDS ORDERED: 0.9 % Sodium Chloride 1,000 ML IVC SCH (14:30)
[2021-12-25 20:25] LABS: A.calcoaceticus-baumannii cplx Not Detected (Not Detect); Bacteroides fragilis by PCR Not Detected (Not Detect); Candida albicans by PCR Not Detected (Not Detect); Candida auris by PCR Not Detected (Not Detect); Candida glabrata by PCR Not Detected (Not Detect); Candida krusei by PCR Not Detected (Not Detect); Candida parapsilosis by PCR Not Detected (Not Detect); Candida tropicalis by PCR Not Detected (Not Detect); Crypto. neoformans/gattii PCR Not Detected (Not Detect); Enterobacter cloacae Cmplx PCR Not Detected (Not Detect); Enterobacterales by PCR Not Detected (Not Detect); Enterococcus faecalis by PCR Not Detected (Not Detect); Enterococcus faecium by PCR Not Detected (Not Detect); Escherichia coli by PCR Not Detected (Not Detect); Klebs. pneumoniae group by PCR Not Detected (Not Detect); Klebsiella aerogenes by PCR Not Detected (Not Detect); Klebsiella oxytoca by PCR Not Detected (Not Detect); Proteus by PCR Not Detected (Not Detect); Pseudomonas aeruginosa by PCR Not Detected (Not Detect); Salmonella species by PCR Not Detected (Not Detect); Serratia marcescens by PCR Not Detected (Not Detect); Staph epidermidis by PCR Not Detected (Not Detect); Staph lugdunensis by PCR Not Detected (Not Detect); Staphylococcus aureus by PCR Not Detected (Not Detect); Staphylococcus by PCR Not Detected (Not Detect); Stenotrophomonas maltophilia Not Detected (Not Detect); Streptococcus agalactiae(B)PCR Not Detected (Not Detect); Streptococcus by PCR Not Detected (Not Detect); Streptococcus pneumoniae PCR Not Detected (Not Detect); Streptococcus pyogenes (A) PCR Not Detected (Not Detect)
[2021-12-25] MEDS: MethylPREDNISolone 40 MG/ML VIAL IVP SCH (20:49)
[2021-12-26] MEDS ORDERED: Acetaminophen 325 MG TABLET PO PRN (01:25)
[2021-12-26] MEDS ORDERED: hydrOXYzine pamoate 25 MG CAPSULE PO PRN (01:37)
[2021-12-26] MEDS: Piperacillin/Tazobactam 3.375 GM in 0.9 % Sodium Chloride Mini Bag 100 ML IVPB SCH ×3 (03:53→19:52)
[2021-12-26] MEDS: Vancomycin 1,250 MG/262.5 ML IV.SOLN IVPB SCH (04:05)
[2021-12-26] MEDS: Levalbuterol Neb 1.25 MG/3 ML IH SCH ×4 (04:38→21:55)
[2021-12-26] MEDS: MethylPREDNISolone 40 MG/ML VIAL IVP SCH (05:51)
[2021-12-26] MEDS: Magnesium Oxide 400 MG TABLET PO SCH (08:20)
[2021-12-26] MEDS: Azithromycin 500 MG in 0.9 % Sodium Chloride 250 ML IVPB SCH (08:36)
[2021-12-26] MEDS ORDERED: Metoprolol XL (24 HR) Succ 25 MG TAB.ER.24H PO SCH (09:00)
[2021-12-26] MEDS ORDERED: *HR* LORazepam 2 MG/ML VIAL IVP ONE (09:30)
[2021-12-26 10:12] LABS: Basophils % 0.1 %; Hematocrit 25.1 % (35.3-44.9); Hemoglobin 7.4 g/dL (11.5-15.4); Immature Granulocytes % 1.3 % (0-4); Lymphocytes # 1.1 K/mcL (0.6-4.6); Lymphocytes % 5.6 %; Mean Corpuscular HGB Conc 29.5 g/dL (31.6-35.5); Mean Corpuscular Hemoglobin 28.5 pg (28.0-33.3); Mean Corpuscular Volume 96.5 fL (83.0-100.0); Mean Platelet Volume 10.6 fL (9.4-12.4); Monocytes # 0.6 K/mcL (0.0-1.3); Monocytes % 3.1 %; Neutrophils # 18.4 K/mcL (1.6-8.9); Platelet Count 292 K/mcL (140-400); Red Cell Distribution Width 15.9 % (11.5-14.5); Segmented Neutrophils % 89.9 %; White Blood Count 20.5 K/mcL (4.3-11.1)
[2021-12-26 10:52] LABS: Calcium 8.7 mg/dL (8.6-10.3); Magnesium 1.8 mg/dL (1.6-2.6); Potassium 4.6 mEq/L (3.5-5.1)
[2021-12-26] MEDS ORDERED: *HR* OxyCODONE Immed Rel 5 MG TABLET PO PRN (11:36)
[2021-12-26] MEDS ORDERED: levETIRAcetam 250 MG TABLET PO SCH (11:45)
[2021-12-26] MEDS ORDERED: Furosemide 20 MG TABLET PO SCH (11:45)
[2021-12-26] MEDS ORDERED: Aspirin Enteric Coated 81 MG Tablet PO SCH (11:45)
[2021-12-26] MEDS: Budesonide/Formoterol 160/4.5 1 PUFF INH IH SCH ×2 (11:47→21:55)
[2021-12-26] MEDS: Acetaminophen 325 MG TABLET PO PRN ×2 (11:47→21:09)
[2021-12-26 15:26] VITALS: BP 111/78; PULSE 85; TEMP 97.7; O2SAT 98
[2021-12-26] MEDS ORDERED: traZODone 50 MG TABLET PO SCH (21:00)
[2021-12-26] MEDS ORDERED: Melatonin 3 MG TABLET PO SCH (21:00)
[2021-12-26] MEDS ORDERED: Lactulose Oral Soln 20 GM/30 ML UDC PO SCH (21:00)
[2021-12-26] MEDS ORDERED: Acetaminophen 325 MG TABLET PO ONE (21:08)
[2021-12-27] MEDS ORDERED: FLUoxetine 20 MG CAPSULE PO SCH (09:00)
[2021-12-27] MEDS ORDERED: MethylPREDNISolone 40 MG/ML VIAL IVP SCH (09:00)
== END 2021-12-26 23:59 | disposition other institution (70) | DRG 720 ==
LOC: EMEROOARM 20:06 → 3NENU 20:06 → SUATTDRO 23:39 → 3NENU 12-25 00:11
PROVIDERS: ADMIT Internal Medicine; ATTEND Internal Medicine